=== PATIENT | female | born 1975 | race Hispanic/Latino ===

== ENCOUNTER 2021-11-25 16:29 | Emergency (ER) | payer OTHER, SELFPAY ==
[2021-11-25] VITALS (8 sets, daily range): BP systolic 122–189; BP diastolic 68–98; PULSE 78–92; RESP 17–23; TEMP 36.6; O2SAT 96–100; BMI 38.9
--- NOTE | 2021-11-25 19:03 | DI.CT.S_ITS ---
PROCEDURE: CT HEAD/BRAIN WO CON INDICATIONS: WARD, vision change TECHNIQUE: Noncontrast 4.5 mm thick angled axial sections acquired from the foramen magnum to the vertex, with coronal and sagittal reformats. For radiation dose reduction, the following was used: automated exposure control, adjustment of mA and/or kV according to patient size. COMPARISON: None. FINDINGS: Image quality: Excellent. CSF spaces: Basal cisterns are patent. No extra-axial fluid collections. Ventricles are normal in size and shape. Brain: No midline shift. No intracranial masses or hemorrhage. Sargent-white matter interface is normal. Skull and face: Calvarium and visualized facial bones are intact, without suspicious lesions. Sinuses: Visualized sinuses and mastoids are clear. IMPRESSION: CT head without acute intracranial abnormalities. No mass or mass effect visualized. Dictated by: Néstor Diallo M.D. on 11/25/2021 at 20:00 Approved by: Néstor Diallo M.D. on 11/25/2021 at 20:01
--- NOTE | 2021-11-25 19:19 | PC.NURSE ---
Went to lobby to bring pt to ED,unable to locate her. I called her and she said she was in her car sleeping.
--- NOTE | 2021-11-25 19:56 | ED_ITS ---
HPI - Headache General Chief Complaint: Headache Stated Complaint: lt sided visual change, face & jaw pain, numbness Time Seen by Provider: 11/25/21 19:03 Mode of arrival: Ambulatory History of Present Illness HPI Narrative: 46F smoker presents with various complaints that have been present since Wednesday. She states that she was at work on Wednesday and in her normal state of health when she had a panic attack, which is not necessarily abnormal for her. She states that she suddenly felt panicked and was breathing rapidly and felt her heart racing. That seemed to improve after some time but as the day went on she developed a left-sided headache with blurred vision in her left eye and abnormal sensation in her thumbs on each side. She denies any dizziness or lightheadedness. She has no chest pain or shortness of breath currently. She states the left side of her head, left ear and jaw have been persistently painful though slightly improved. She states that the pain is just anterior to her left ear in her jaw and she feels popping and cracking this location and sometimes her left ear sounds like there is a cellophane wrapper being crackled. She denies any obvious provocation or palliation. She denies any neck pain. She states that her symptoms by large have greatly improved but she still has some blurring of the vision in her left eye. She is able to see wiggling fingers but still cannot read and vision is decreased when compared to the left. Related Data Allergies Allergy/AdvReac Type Severity Reaction Status Date / Time No Known Drug Allergies Allergy Verified 11/25/21 20:52 Review of Systems Review of Systems Narrative: GENERAL: Denies chills, fatigue, malaise, fever, sweats. HEENT: See HPI RESPIRATORY: Denies dyspnea, cough, wheezing, hemoptysis, sputum. CARDIOVASCULAR: See HPI GASTROINTESTINAL: Denies nausea, vomiting, abdominal pain, diarrhea, constipation, melena. : Denies dysuria, frequency, incontinence, hematuria, urinary retention. MUSCULOSKELETAL: denies weakness, joint pain, or bony pain SKIN: Denies rash, skin lesions, or other NEUROLOGIC: See HPI PSYCHIATRIC: No concerning psychosocial issues. 12 point review of systems is negative except for those stated above Patient History Social History Smoking Status: Current every day smoker Smoking Status: Current every day smoker tobacco type: cigarettes alcohol intake frequency: a few times a week Substance Use Type: does not use Exam Narrative Exam Narrative: GENERAL: [46] year old patient appears stated age. Well-developed patient, in mild distress. GCS 15 HEAD: Atraumatic. Normocephalic. To swelling, redness. No pain on palpation of left catholic EYES: Pupils equal round and reactive. Extraocular motions intact. No scleral icterus. No injection or drainage. Tonopen OS 19/OD 21. ENT: Nose without bleeding, purulent drainage. Throat without erythema, tonsillar hypertrophy or exudate. Airway patent. NECK: Trachea midline. Non tender CARDIOVASCULAR: Regular rate and rhythm without murmurs, gallops, or rubs. RESPIRATORY: Clear to auscultation. Breath sounds equal bilaterally. No wheezes, rales, or rhonchi. GASTROINTESTINAL: Abdomen soft, non-tender, nondistended. EXTREMITIES: No edema or joint tenderness. BACK: Nontender without deformity or crepitance. No flank tenderness. NEURO: AOx3. SKIN: No rash or erythema of visible areas NIH Stroke Scale 1a. LOC: Patient is alert and keenly responsive (0) 1b. LOC Questions: Patient answers both LOC questions accurately (0) 1c. LOC Commands: Patient performs both tasks correctly (0) 2. Best Gaze: Normal (0) 3. Visual: No visual loss (0) 4. Facial palsy: Normal symmetrical movements (0) 5. Motor arm: No drift (0) 6. Motor leg: No drift (0) 7. Limb ataxia: Absent (0) 8. Sensory: Normal (0) 9. Best language: No aphasia; normal (0) 10. Dysarthria: Normal (0) 11. Extinction and inattention: No abnormality (0) NIHSS: 0 Initial Vital Signs Initial Vital Signs: Vital Signs Temperature 98 F 11/25/21 16:39 Pulse Rate 92 H 11/25/21 16:39 Respiratory Rate 20 11/25/21 16:39 Blood Pressure 189/98 H 11/25/21 16:39 Pulse Oximetry 98 11/25/21 16:39 Course Orders Ordered: ED Orders 11/25/21 19:03 CT head/brain wo con Stat 11/25/21 19:04 EKG-12 Lead Stat 11/25/21 20:15 CRP [C-Reactive Protein Quant] Stat Complete Blood Count AUTO DIFF Stat Comprehensive Metabolic Panel Stat ESR [Erythrocyte Sedimentation Rate] Stat Prothrombin Time INR Stat Troponin & CK Cardiac Panel Stat 11/25/21 20:29 CT angio head and neck Stat Discontinued Medications Fluorescein Sodium (Fluorescein 1 Mg Strip) 1 mg EYE-LEFT NOW ONE Stop: 11/25/21 20:10 Last Admin: 11/25/21 20:16 Dose: 1 mg Documented by: CARRINGTON Sodium Chloride (Normal Saline 0.9%) 1,000 mls @ 150 mls/hr IV CONT FRANCHESKA Last Admin: 11/25/21 20:16 Dose: 150 mls/hr Documented by: CARRINGTON Ketorolac Tromethamine (Ketorolac 30 Mg/Ml Vial) 15 mg IV NOW ONE Stop: 11/25/21 20:30 Last Admin: 11/25/21 20:52 Dose: 15 mg Documented by: GRANT Proparacaine HCl (Proparacaine 0.5% Ophth Maria Luisa) 1 drops EYE-LEFT NOW ONE Stop: 11/25/21 20:10 Last Admin: 11/25/21 20:16 Dose: 1 1000units Documented by: CARRINGTON Vital Signs Vital signs: Vital Signs - 8 hr 11/25/21 20:29 11/25/21 20:30 11/25/21 20:31 Pulse Rate 83 80 82 Respiratory Rate 19 19 17 Blood Pressure 131/75 Pulse Oximetry 98 98 98 11/25/21 20:55 11/25/21 21:00 11/25/21 21:30 Pulse Rate 81 78 78 Respiratory Rate 22 20 23 Blood Pressure 122/68 127/69 Pulse Oximetry 100 98 97 11/25/21 22:00 Pulse Rate 78 Respiratory Rate 18 Blood Pressure Pulse Oximetry 96 MDM - Headache Lab Data Result diagrams: 11/25/21 20:15 11/25/21 20:15 Labs: Lab Results 11/25/21 11/25/21 11/25/21 Range/Units 20:15 20:15 20:15 WBC 9.7 (4.5-11.0) X10^3/uL RBC 4.92 (4.0-5.2) X10^6/uL Hgb 14.3 (12.0-16.0) g/dL Hct 41.3 (36-46) % MCV 84.0 (80-100) fL MCH 29.0 (26-34) PG MCHC 34.5 (30-36) % RDW 13.0 (11.6-14.8) % Plt Count 159 (150-400) X10^3/uL Neut % (Auto) 59.4 (50-75) % Lymph % (Auto) 31.8 (25-40) % [place] % (Auto) 5.8 (3-14) % Eos % (Auto) 2.2 (2-4) % Baso % (Auto) 0.8 (0-2) % Neut # (Auto) 5800 (4781-1653) /uL Lymph # (Auto) 3100 (1430-3687) /uL [place] # (Auto) 600 (0-900) /uL Eos # (Auto) 200 (0-450) /uL Baso # (Auto) 100 (0-100) /uL ESR 18 (0-20) MM/HR PT (10.1-12.7) SECONDS INR (0.9-1.3) Sodium 136 L (137-145) mmol/L Potassium 3.7 (3.4-5.1) mmol/L Chloride 105 (98-107) mmol/L Carbon Dioxide 26 (22-32) mmol/L BUN 12 (7-17) mg/dL Creatinine 0.75 (0.52-1.04) mg/dL Estimated GFR > 60.0 (>60) mL/min BUN/Creatinine Ratio 16.0 (6-22) Glucose 91 (70-100) mg/dL Calcium 9.2 (8.4-10.2) mg/dL Total Bilirubin 0.8 (0.2-1.3) mg/dL AST 23 (14-36) IU/L ALT 21 (<35) IU/L Alkaline Phosphatase 65 (38-126) U/L Total Creatine Kinase 98 (30-135) U/L CK-MB (CK-2) TNP CK-MB (CK-2) Rel Index TNP Troponin I < 0.012 (0.01-0.034) ng/mL C-Reactive Protein < 0.5 (<1.0) mg/dL Total Protein 7.6 (6.3-8.2) g/dL Albumin 4.5 (3.5-5.0) g/dL Globulin 3.1 (1.7-4.1) g/dL Albumin/Globulin Ratio 1.5 (1.0-2.8) 11/25/21 Range/Units 20:15 WBC (4.5-11.0) X10^3/uL RBC (4.0-5.2) X10^6/uL Hgb (12.0-16.0) g/dL Hct (36-46) % MCV (80-100) fL MCH (26-34) PG MCHC (30-36) % RDW (11.6-14.8) % Plt Count (150-400) X10^3/uL Neut % (Auto) (50-75) % Lymph % (Auto) (25-40) % [place] % (Auto) (3-14) % Eos % (Auto) (2-4) % Baso % (Auto) (0-2) % Neut # (Auto) (8881-7275) /uL Lymph # (Auto) (4665-7306) /uL [place] # (Auto) (0-900) /uL Eos # (Auto) (0-450) /uL Baso # (Auto) (0-100) /uL ESR (0-20) MM/HR PT 11.9 (10.1-12.7) SECONDS INR 1.1 (0.9-1.3) Sodium (137-145) mmol/L Potassium (3.4-5.1) mmol/L Chloride (98-107) mmol/L Carbon Dioxide (22-32) mmol/L BUN (7-17) mg/dL Creatinine (0.52-1.04) mg/dL Estimated GFR (>60) mL/min BUN/Creatinine Ratio (6-22) Glucose (70-100) mg/dL Calcium (8.4-10.2) mg/dL Total Bilirubin (0.2-1.3) mg/dL AST (14-36) IU/L ALT (<35) IU/L Alkaline Phosphatase (38-126) U/L Total Creatine Kinase (30-135) U/L CK-MB (CK-2) CK-MB (CK-2) Rel Index Troponin I (0.01-0.034) ng/mL C-Reactive Protein (<1.0) mg/dL Total Protein (6.3-8.2) g/dL Albumin (3.5-5.0) g/dL Globulin (1.7-4.1) g/dL Albumin/Globulin Ratio (1.0-2.8) Imaging Data CT scan - head: Radiologist's Impression: Launch?[place] [address] CT Scan Report Signed Patient: Anthony Mott MR#: [id number] : 1975 Acct:[id number] Age/Sex: 46 / F Date of Service: 11/25/21 Loc: ED Accession Number: [id number] ?? Procedure: CT head/brain wo con Ordering Provider: Main Antunez D.O. PROCEDURE:? CT HEAD/BRAIN WO CON ? INDICATIONS:? WARD, vision change ? TECHNIQUE:? Noncontrast 4.5 mm thick angled axial sections acquired from the foramen magnum to the vertex, with coronal and sagittal reformats.? For radiation dose reduction, the following was used:? automated exposure control, adjustment of mA and/or kV according to patient size.? ? COMPARISON:? None. ? FINDINGS:? Image quality:? Excellent.? ? CSF spaces:? Basal cisterns are patent.? No extra-axial fluid collections.? Ventricles are normal in size and shape.? ? Brain:? No midline shift.? No intracranial masses or hemorrhage.? Sargent-white matter interface is normal.? ? Skull and face:? Calvarium and visualized facial bones are intact, without suspicious lesions.? ? Sinuses:? Visualized sinuses and mastoids are clear.? ? IMPRESSION:? CT head without acute intracranial abnormalities. No mass or mass effect visualized.? Dictated by: Néstor Diallo M.D. on 11/25/2021 at 20:00 ? ? Approved by: Néstor Diallo M.D. on 11/25/2021 at 20:01 ? CTA : Radiologist's Impression: Launch?[address] [address] [address] Scan Report Signed Patient: Anthony Mott MR#: [id number] : 1975 Acct:[id number] Age/Sex: 46 / F Date of Service: 11/25/21 Loc: ED Accession Number: [id number] ?? Procedure: CT angio head and neck Ordering Provider: Main Antunez D.O. PROCEDURE:? CT ANGIO HEAD AND NECK ? INDICATIONS:? left vision change, B/L extremity problems ? TECHNIQUE:? After the administration of intravenous contrast, 1 mm thick sections acquired from the aortic arch through the [place] of [place].? Post-contrast 4.5 mm thick sections then re-acquired from the foramen magnum to the vertex.? 3-dimensional bmnjeom-fxdykqshc-gdwqqabrjr (MIP) and/or volume rendering reformats were acquired of the central intracranial vasculature and neck separately. ? COMPARISON:? [facility], CT, CT HEAD/BRAIN WO CON, 11/25/2021, 19:08. ? FINDINGS:? Image quality:? Excellent.? ? BRAIN:? CSF spaces:? Ventricles are normal in size and shape.? Basal cisterns are patent.? No extra-axial fluid collections.? ? Brain:? No midline shift.? No acute intracranial hemorrhage or mass effect.? Sargent-white matter interface appears intact.? ? Skull and face:? Calvarium and facial bones appear intact, without suspicious lesions.? Orbits appear normal.? ? Sinuses:? Sin mild mucosal thickening is seen in the right sphenoid sinus and the right ethmoid air cells.? The remaining visualized paranasal sinuses and the mastoid air cells are clear. ? HEAD CT ANGIOGRAPHY:? Anterior circulation:? Intracranial internal carotid arteries are normal in size and flow.? The flow within the paired anterior cerebral arteries is normal and symmetric.? The flow within the middle cerebral arteries is normal and symmetric.? The anterior communicating artery is seen.? No aneurysms are seen.? ? Posterior circulation:? Visualized portions of the vertebral arteries demonstrate normal caliber, and join to form a normal appearing basilar artery.? Flow within the posterior cerebral arteries is normal and symmetric.? No aneurysms are seen.? ? NECK CT ANGIOGRAPHY:? Carotid system:? The great vessels demonstrate a conventional anatomy as they arise from the aortic arch.? The origins of the common carotid arteries appear patent.? The common carotid arteries demonstrate normal caliber and courses.? The bifurcation regions are both widely patent.? The internal carotid arteries demonstrate normal calibers and courses.? ? Posterior circulation:? The origins of the vertebral arteries both appear widely patent.? The more superior extracranial portions of both vertebral arteries also demonstrate normal courses and calibers.? They join to form a normal appearing basilar artery.? ? Soft tissues:? Visualized neck soft tissues demonstrate no suspicious abnormalities.? ? Bones:? No suspicious bony lesions.? Mild degenerative changes are seen in the included spine. ? ? IMPRESSION:? No hemodynamically significant arterial stenosis or occlusion in the head or neck.? No acute intracranial abnormality is seen. ? Any quantitative measurements of stenosis were performed using NASCET criteria.? ? ? Dictated by: Osbaldo Guevara M.D. on 11/25/2021 at 21:18 ? ? Approved by: Osbaldo Guevara M.D. on 11/25/2021 at 21:27 ? ECG Data Interpretation: EKG is normal sinus rhythm rate [81 ] and free of any signs of ischemia or ectopy. No ST segmental elevation or depression. No T wave inversions MDM Narrative Medical decision making narrative: Patient has very reassuring physical exam. Imaging shows no significant findings. Her symptoms are significantly improved now over its onset. Multiple diagnoses considered including stroke, carotid dissection or other neurosurgical emergency which are thought to be very unlikely given her history, physical and imaging results. Giant cell arteritis considered but thought unlikely given lack of pain on palpation over catholic, lack of elevated inflammatory markers. Acute angle closure glaucoma considered but thought unlikely given measurements as stated above. Patient certainly has evidence of temporomandibular joint disorder but no other significant diagnoses are obviously apparent. Patient given extensive return precautions and questions have been answered to her apparent satisfaction Discharge Plan Departure Patient Disposition: Home Clinical Impression: Temporal mandibular joint disorder Instructions: DI for Headache Activity Restrictions/Additional Instructions: *You have been diagnosed with [left-sided temporomandibular joint dysfunction. Your physical exam, CT scan, labs and EKG are very reassuring. There is no evidence of stroke, abnormality with arteries in your head and neck, giant cell arteritis, glaucoma or other severe diagnosis that requires a specific and immediate intervention *What to do: *Please continue to take your regular medications as directed. [ ] New medication prescriptions sent to your pharmacy: [ ] [ ] New medication written as a paper prescription [ x] No new medications given *Please follow up with your primary care provider in 2-3 days, call for an appointment. Let them know you were seen in the Emergency Department and that we ask that you be seen in follow up. We will electronically transmit a record of today's note if your PCP is in our system *If you do not have a primary care provider please contact the [facility] Resource line at [phone]. They will ask some questions about your medical history and help get you set up with a doctor in the community. *Return to Emergency Department if you should have any new, worsening or concerning symptoms, such as [fever greater than 101 F, shaking chills, wo rsening pain, persistent vomiting or other bothersome symptoms] Referrals: Hilaria Rubio MD [Primary Care Provider] -
[2021-11-25] MEDS: PROPARACAINE 0.5% OPHTH SOL 1 DROPS EYE-LEFT (20:16)
[2021-11-25] MEDS: FLUORESCEIN 1 MG STRIP EYE-LEFT (20:16)
[2021-11-25] MEDS: SODIUM CHLORIDE 0.9% 1,000 ML 150 ML IV (20:16)
--- NOTE | 2021-11-25 20:29 | DI.CT.S_ITS ---
PROCEDURE: CT ANGIO HEAD AND NECK INDICATIONS: left vision change, B/L extremity problems TECHNIQUE: After the administration of intravenous contrast, 1 mm thick sections acquired from the aortic arch through the [place] of [place]. Post-contrast 4.5 mm thick sections then re-acquired from the foramen magnum to the vertex. 3-dimensional tkaahpx-mvyjuriff-yllfgvjwpg (MIP) and/or volume rendering reformats were acquired of the central intracranial vasculature and neck separately. COMPARISON: [facility], CT, CT HEAD/BRAIN WO CON, 11/25/2021, 19:08. FINDINGS: Image quality: Excellent. BRAIN: CSF spaces: Ventricles are normal in size and shape. Basal cisterns are patent. No extra-axial fluid collections. Brain: No midline shift. No acute intracranial hemorrhage or mass effect. Sargent-white matter interface appears intact. Skull and face: Calvarium and facial bones appear intact, without suspicious lesions. Orbits appear normal. Sinuses: Sin mild mucosal thickening is seen in the right sphenoid sinus and the right ethmoid air cells. The remaining visualized paranasal sinuses and the mastoid air cells are clear. HEAD CT ANGIOGRAPHY: Anterior circulation: Intracranial internal carotid arteries are normal in size and flow. The flow within the paired anterior cerebral arteries is normal and symmetric. The flow within the middle cerebral arteries is normal and symmetric. The anterior communicating artery is seen. No aneurysms are seen. Posterior circulation: Visualized portions of the vertebral arteries demonstrate normal caliber, and join to form a normal appearing basilar artery. Flow within the posterior cerebral arteries is normal and symmetric. No aneurysms are seen. NECK CT ANGIOGRAPHY: Carotid system: The great vessels demonstrate a conventional anatomy as they arise from the aortic arch. The origins of the common carotid arteries appear patent. The common carotid arteries demonstrate normal caliber and courses. The bifurcation regions are both widely patent. The internal carotid arteries demonstrate normal calibers and courses. Posterior circulation: The origins of the vertebral arteries both appear widely patent. The more superior extracranial portions of both vertebral arteries also demonstrate normal courses and calibers. They join to form a normal appearing basilar artery. Soft tissues: Visualized neck soft tissues demonstrate no suspicious abnormalities. Bones: No suspicious bony lesions. Mild degenerative changes are seen in the included spine. IMPRESSION: No hemodynamically significant arterial stenosis or occlusion in the head or neck. No acute intracranial abnormality is seen. Any quantitative measurements of stenosis were performed using NASCET criteria. Dictated by: Osbaldo Guevara M.D. on 11/25/2021 at 21:18 Approved by: Osbaldo Guevara M.D. on 11/25/2021 at 21:27
[2021-11-25 20:30] LABS: Add Manual Diff / Slide Review NO; Basophils Absolute Auto 100 /uL (0-100); Basophils Percent Auto 0.8 % (0-2); Eosinophils Absolute Auto 200 /uL (0-450); Eosinophils Percent Auto 2.2 % (2-4); Hematocrit 41.3 % (36-46); Hemoglobin 14.3 g/dL (12.0-16.0); Lymphocytes Absolute Auto 3100 /uL (1100-4500); Lymphocytes Percent Auto 31.8 % (25-40); Mean Corpuscular HGB Conc 34.5 % (30-36); Monocytes Absolute Auto 600 /uL (0-900); Monocytes Percent Auto 5.8 % (3-14); Neutrophils Absolute Auto 5800 /uL (1500-7000); Neutrophils Percent Auto 59.4 % (50-75); Platelet Count 159 X10^3/uL (150-400); Red Blood Cell Count 4.92 X10^6/uL (4.0-5.2); White Blood Cell Count 9.7 X10^3/uL (4.5-11.0)
[2021-11-25 20:43] LABS: INR 1.1 (0.9-1.3); Prothrombin Time 11.9 SECONDS (10.1-12.7)
[2021-11-25 20:49] LABS: Alanine Aminotransferase 21 IU/L (<35); Albumin 4.5 g/dL (3.5-5.0); Albumin Globulin Ratio 1.5 (1.0-2.8); Alkaline Phosphatase 65 U/L (38-126); Aspartate Aminotransferase 23 IU/L (14-36); Bilirubin Total 0.8 mg/dL (0.2-1.3); Blood Urea Nitrogen 12 mg/dL (7-17); C-Reactive Protein Quant < 0.5 mg/dL (<1.0); Calcium 9.2 mg/dL (8.4-10.2); Carbon Dioxide 26 mmol/L (22-32); Chloride 105 mmol/L (98-107); Creatine Kinase 98 U/L (30-135); Estimated Glomerular Filt Rate > 60.0 mL/min (>60); Globulin 3.1 g/dL (1.7-4.1); Glucose 91 mg/dL (70-100); HEMOLYSIS < 15 (0-50); Potassium 3.7 mmol/L (3.4-5.1); Sodium 136 mmol/L (137-145); Total Protein 7.6 g/dL (6.3-8.2)
[2021-11-25] MEDS: KETOROLAC 30 MG/ML VIAL 15 MG IV (20:52)
[2021-11-25 20:57] LABS: Troponin I < 0.012 ng/mL (0.01-0.034)
[2021-11-25 21:06] LABS: Erythrocyte Sedimentation Rate 18 MM/HR (0-20)
== END 2021-11-25 22:10 | disposition home or self-care (01) ==
PROVIDERS: Emergency Provider Emergency Medicine; PCP Student in an Organized Health Care Education/Training Program; Referring Provider Student in an Organized Health Care Education/Training Program
DX: M26.602 Left temporomandibular joint disorder, unspecified (principal); R20.2 Paresthesia of skin; H53.8 Other visual disturbances; R03.0 Elevated blood-pressure reading, without diagnosis of hypertension
CPT/HCPCS: 36415; 70450; 70496; 70498; 80053; 82550; 84484; 85025; 85610; 85651; 86140; 93005; 93010; 96374; 99284; J1885; Q9967

== ENCOUNTER → 2022-12-23 15:12 | Outpatient (CLI) | payer OTHER, SELFPAY ==
[2022-12-23 15:53] LABS: Hematocrit 45.4 % (36-46); Hemoglobin 15.9 g/dL (12.0-16.0); Mean Corpuscular Hemoglobin 29.3 PG (26-34); Mean Corpuscular Volume 83.8 fL (80-100); Platelet Count 134 X10^3/uL (150-400); Red Blood Cell Count 5.42 X10^6/uL (4.0-5.2); Red Cell Distribution Width 12.9 % (11.6-14.8); White Blood Cell Count 6.9 X10^3/uL (4.5-11.0)
[2022-12-23 16:50] LABS: Alanine Aminotransferase 24 IU/L (<35); Albumin 4.6 g/dL (3.5-5.0); Albumin Globulin Ratio 1.3 (1.0-2.8); Alkaline Phosphatase 64 U/L (38-126); Aspartate Aminotransferase 24 IU/L (14-36); BUN Creatinine Ratio 15.8 (6-22); Bilirubin Total 0.7 mg/dL (0.2-1.3); Blood Urea Nitrogen 12 mg/dL (7-17); Calcium 9.4 mg/dL (8.4-10.2); Carbon Dioxide 27 mmol/L (22-32); Chloride 103 mmol/L (98-107); Cholesterol 266 mg/dL (140-199); Estimated Glomerular Filt Rate > 60 mL/min (>60); Globulin 3.6 g/dL (1.7-4.1); Glucose 94 mg/dL (70-100); HDL Cholesterol 41 mg/dL (40-60); HEMOLYSIS < 15 (0-50); LDL Cholesterol Calculated 161 mg/dL (<100); Potassium 4.2 mmol/L (3.4-5.1); Sodium 138 mmol/L (137-145); Total Protein 8.2 g/dL (6.3-8.2); Triglycerides 318 mg/dL (35-150)
[2022-12-23 17:19] LABS: TSH w/ Reflex to FT4 3.32 uIU/mL (0.47-4.68)
[2022-12-25 03:09] LABS: Labcorp Hemoglobin (Hb) A1c 5.4 % (4.8-5.6)
[2022-12-28 16:41] LABS: Lamotrigine Lamictal 2.3 ug/mL (2.0-20.0)
== END ==
PROVIDERS: PCP Internal Medicine; Referring Provider Internal Medicine; Visit Provider Internal Medicine
DX: Z00.00 Encounter for general adult medical examination without abnormal findings (principal); E78.2 Mixed hyperlipidemia; F31.81 Bipolar II disorder
CPT/HCPCS: 36415; 80053; 80061; 80175; 83036; 84443; 85027

== ENCOUNTER → 2023-02-26 07:39 | Outpatient (CLI) | payer OTHER, SELFPAY ==
--- NOTE | 2023-02-26 | DI.MG.S_ITS ---
BILATERAL DIGITAL SCREENING MAMMOGRAM 3D/2D WITH CAD: 02/26/2023 CLINICAL: Routine screening. Comparison is made to exams dated: 05/20/2021 mammogram - [facility], 01/11/2018 mammogram, and 01/16/2016 mammogram - [facility]. Both breasts are heterogeneously dense, which may obscure small masses (category c / 51-75% glandular tissue). Current study was also evaluated with a Computer Aided Detection (CAD) system. No significant masses, calcifications, or other findings are seen in either breast. There has been no significant interval change. IMPRESSION: NEGATIVE There is no mammographic evidence of malignancy. A 1 year screening mammogram is recommended. Based on the Tyrer Cuzick model (a risk assessment model) the patient's lifetime risk is 10.4% and her 10 year risk is 2.1%. According to the ACR, ACS, and NCCN guidelines, an annual breast MRI exam along with mammogram is recommended if the patient's lifetime risk is 20% or greater. This exam was interpreted at Station ID: [id number]. NOTE: For mammograms, a report in lay terms will be sent to the patient. Approximately 15% of breast malignancies will not be visualized mammographically. In the management of a palpable breast mass, a negative mammogram must not discourage biopsy of a clinically suspicious lesion. Electronically Signed By: Dennys davalos/sheryl:02/26/2023 10:34:53 letter sent: Normal Exam ACR BI-RADS Category 1: Negative 3341F
== END ==
PROVIDERS: PCP Internal Medicine; Referring Provider Internal Medicine; Visit Provider Internal Medicine
DX: Z12.31 Encounter for screening mammogram for malignant neoplasm of breast (principal)
CPT/HCPCS: 77063; 77067

== ENCOUNTER 2023-03-26 11:18 | Day surgery (SDC) | payer OTHER, SELFPAY ==
--- NOTE | 2023-03-26 | PATH_ITS ---
[facility] Accession Number: [id number] No. of containers..01 Tissue . 01 Material submitted: . colon - TRANSVERSE COLON BIOPSY . 01 Diagnosis: Transverse Colon, Biopsy: Tubular adenoma. MRV 04/01/2023 1620 Local . 01 Electronically signed: . Eunice Walden MD, Pathologist NPI- [id number] . 01 Gross description: . TRANSVERSE COLON BIOPSY: Received in formalin are 3 fragment(s) of frey, soft tissue measuring 0.1 x 0.1 x 0.1 cm to 0.3 x 0.2 x 0.2 cm submitted entirely in 1 cassette(s) /LEXA 03/30/20232032 Local . 01 Pathologist provided ICD-10: D12.3 . 01 CPT . 651768 Specimen Comment: A courtesy copy of this report has been sent to [facility] Pathology Performed at: 01 [facility] Cyt[facility] [address] [place] [address], [place], [place] [id number] MD Salvador Gutierrez MD Phone: [phone]
[2023-03-26 11:41] VITALS: BP 127/86; PULSE 77; RESP 19; TEMP 36.5; O2SAT 98; BMI 38.6
[2023-03-26] MEDS: LACTATED RINGERS 1,000 ML 84 ML IV (12:00)
--- NOTE | 2023-03-26 13:26 | P.HP_ITS ---
History of Present Illness History of Present Illness Date Patient Seen: 03/26/23 Date of Onset of Symptoms: 03/26/23 Chief complaint: Colonoscopy Narrative: Ms. Mott presents today for a screening colonoscopy. She has no family history of colon cancer. This is her 1st colonoscopy. She has no concerning symptoms but she does say that on occasion she has constipation and diarrhea along with abdominal cramps on occasion. This has been going on for years and she has not had much workup for it. She has changed her diet but mainly that was because her legs are becoming swollen and she is switched to a low-sodium diet additionally she is started a low-carbohydrate diet because her knees are hurting and she knows she needs to lose weight. She has not noticed any change in her occasional diarrhea constipation and cramps with those dietary changes. She does take Benefiber once at nighttime and in fact this does seem to help. She is no other questions about a colonoscopy today and would like to proceed. [facility] Medical History ADD (attention deficit disorder) Adjustment disorder with other symptoms Allergic rhinitis Asthma Bipolar 2 disorder Bipolar disorder, in partial remission, most recent episode mixed Carpal tunnel syndrome Chronic cough Generalized anxiety disorder Headache Mixed hyperlipidemia Obesity (BMI 35.0-39.9 without comorbidity) PTSD (post-traumatic stress disorder) Restless legs syndrome Synovial cyst of popliteal space [Chowdary], right knee TMJ syndrome Tobacco use disorder Surgical History Anesthesia History of carpal tunnel surgery History of knee surgery Family History Father Cancer Mother Hypertension Hyperlipidemia Mental health problem Social History details: ([place]), son age 20; caregiver household members: spouse Smoking Status: Current every day smoker alcohol intake: current Meds Home Medications and Allergies Home Medications Medication Instructions Recorded Confirmed Type methylphenidate HCl 18 mg 18 mg PO DAILY #90 tabs 10/30/22 03/26/23 Rx tablet,extended release 24 hr aspirin 81 mg tablet,delayed 81 mg PO DAILY Blood circulation 12/23/22 03/26/23 History release atorvastatin 40 mg tablet 40 mg PO DAILY #90 tabs 12/23/22 03/26/23 Rx cholecalciferol (vitamin D3) 125 125 mcg PO DAILY 12/23/22 03/26/23 History mcg (5,000 unit) capsule lamotrigine 100 mg tablet 100 mg PO BID #90 tabs 12/23/22 03/26/23 Rx loratadine 10 mg tablet 10 mg PO DAILY #90 tabs 12/23/22 03/26/23 Rx meloxicam 15 mg tablet 15 mg PO DAILY #90 tabs 12/23/22 03/26/23 Rx omega-3 fatty acids 1,000 mg 1,000 mg PO DAILY 12/23/22 03/26/23 History capsule phytonadione (vitamin K1) 100 mcg 100 mcg PO DAILY 12/23/22 03/26/23 History tablet prazosin 1 mg capsule 1 mg PO BEDTIME #90 caps 12/23/22 03/26/23 Rx guaifenesin 600 mg tablet, 600 mg PO Q12H PRN Congestion 03/12/23 03/26/23 History extended release 12 hr (Mucinex) fluticasone propionate 50 1 spray intranasal DAILY Allergies 03/15/23 03/26/23 Rx mcg/actuation nasal #16 grams spray,suspension hydrochlorothiazide 25 mg tablet 25 mg PO DAILY #90 tabs 03/22/23 03/26/23 Rx Allergies Allergy/AdvReac Type Severity Reaction Status Date / Time Steroid AdvReac Severe Agitated Uncoded 03/22/23 13:36 Raquel AdvReac Intermediate Swelling Uncoded 03/26/23 11:52 of the Eye Exam Vital Signs (past 8 hours): - 03/26/23 11:41 Temperature 97.7 F Pulse Rate 77 Respiratory Rate 19 Blood Pressure 127/86 Pulse Oximetry 98 Oxygen Delivery Method Room Air Oxygen Delivery Method Room Air Const General: cooperative, healthy appearing and comfortable Nutritional Appearance: obese (38 bmi) Orientation: alert, awake and oriented x3 HENMT Head: normal to inspection Eyes General: appearance normal, both eyes and all related structures Neck Neck: normal visual inspection Resp Effort & Inspection: normal respiratory effort and able to speak in complete sentences GI Palpation: soft and No tender Extrem General: normal to inspection Other: I do not appreciate a large amount of bilateral lower extremity edema. Assessment & Plan Assessment and plan (1) Colon cancer screening: Status: Acute Assessment & Plan narrative: Presents today for screening colonoscopy I discussed the risks benefits and alternatives including but not limited to perforation of the colon and an incomplete exam she fully understands these risks and would like to proceed.
--- NOTE | 2023-03-26 14:31 | PM.OP.COLON ---
Operative Date/Time/Diagnoses Date of procedure: 03/26/23 Time of procedure: 14:31 Pre-op diagnosis: Screening for colon cancer, no family history Post-op diagnosis: same Procedure & Clinicians Study performed: Colonoscopy and biopsy Same procedure as scheduled: Yes Indications: Screening for colon cancer Surgeon: Maria D Weston Procedure Notes Procedure in detail: Patient was taken to the endoscopy suite and placed in a left lateral decubitus position. A time-out was performed. With the help of anesthesiologist conscious sedation was induced and monitored throughout the case. A digital rectal exam was performed and there were no masses or strictures. The colonoscope was introduced into the anal canal and advanced through to the cecum. A photograph of the appendiceal orifice was obtained. The bowel prep was good [place] bowel prep score of 2. The scope was then withdrawn for a total of 11 minutes and 1 polyp in the transverse colon was seen and removed with 2 bites of the biopsy forceps. The 1st bite partially missed the polyp and the polyp was small size probably approximately 5 mm. A few scattered sigmoid diverticula were noted. The scope was withdrawn through the anal canal and a photograph of the internal hemorrhoidal piles was obtained. Findings: divertiulosis and polyp(s) Specimen(s): other (Transverse colon polyp) Post-procedure Plan for aftercare: Follow-up recommendations are pending the biopsy results but likely to be between 7-10 years. Fiber supplementation recommended.
[2023-03-26 14:34] VITALS: BP 95/66; PULSE 76; RESP 20; TEMP 36.1; O2SAT 98
[2023-03-26 14:39] VITALS: BP 95/51; PULSE 84; RESP 18; O2SAT 99
[2023-03-26 14:45] VITALS: BP 102/64; PULSE 79; RESP 19; O2SAT 98
== END 2023-03-26 15:14 | disposition home or self-care (01) ==
PROVIDERS: PCP Internal Medicine; Referring Provider Surgery; Visit Provider Surgery
PROC: 0DJD8ZZ Inspection of Lower Intestinal Tract, Via Natural or Artificial Opening Endoscopic (ICD-10-PCS; CPT 45378; principal; 2023-03-26 12:30)
DX: D12.3 Benign neoplasm of transverse colon (principal); K57.90 Diverticulosis of intestine, part unspecified, without perforation or abscess without bleeding; J45.909 Unspecified asthma, uncomplicated; F31.81 Bipolar II disorder; E66.9 Obesity, unspecified; Z68.35 Body mass index [BMI] 35.0-35.9, adult; Z12.11 Encounter for screening for malignant neoplasm of colon
CPT/HCPCS: 45380; J2704

== ENCOUNTER → 2023-04-05 08:15 | Outpatient (CLI) | payer OTHER, SELFPAY ==
[2023-04-05 09:15] LABS: BUN Creatinine Ratio 18.1 (6-22); Blood Urea Nitrogen 13 mg/dL (7-17); Calcium 9.1 mg/dL (8.4-10.2); Carbon Dioxide 32 mmol/L (22-32); Chloride 101 mmol/L (98-107); Estimated Glomerular Filt Rate > 60 mL/min (>60); Glucose 112 mg/dL (70-100); HEMOLYSIS < 15 (0-50); Potassium 4.5 mmol/L (3.4-5.1); Sodium 137 mmol/L (137-145)
[2023-04-05 09:45] LABS: Cortisol Random 9.76 ug/dL
== END ==
PROVIDERS: PCP Internal Medicine; Referring Provider Internal Medicine; Visit Provider Internal Medicine
DX: E24.9 Cushing's syndrome, unspecified (principal); I87.2 Venous insufficiency (chronic) (peripheral)
CPT/HCPCS: 36415; 80048; 82533

== ENCOUNTER → 2023-06-14 16:44 | Outpatient (CLI) | payer OTHER, SELFPAY ==
[2023-06-14 18:42] LABS: BUN Creatinine Ratio 21.6 (6-22); Blood Urea Nitrogen 16 mg/dL (7-17); Calcium 10.1 mg/dL (8.4-10.2); Carbon Dioxide 28 mmol/L (22-32); Chloride 100 mmol/L (98-107); Estimated Glomerular Filt Rate > 60 mL/min (>60); Glucose 97 mg/dL (70-100); HEMOLYSIS < 15 (0-50); Potassium 3.7 mmol/L (3.4-5.1); Sodium 137 mmol/L (137-145)
== END ==
PROVIDERS: PCP Internal Medicine; Referring Provider Internal Medicine; Visit Provider Internal Medicine
DX: I87.2 Venous insufficiency (chronic) (peripheral) (principal)
CPT/HCPCS: 36415; 80048

== ENCOUNTER → 2023-08-16 15:02 | Outpatient (CLI) | payer OTHER, SELFPAY ==
--- NOTE | 2023-08-16 15:03 | DI.US.S_ITS ---
PROCEDURE: US PELVIC COMPLETE INDICATIONS: IRREGULAR BLEEDING TECHNIQUE: Real-time scanning was performed of the pelvic organs, with image documentation. Additional endovaginal scanning was necessary due to incomplete visualization of the adnexal and endometrial structures by transabdominal scanning. COMPARISON: None. FINDINGS: Uterus: Uterus is anteverted and bulbous in appearance at 7.5 x 3.9 x 3.4 cm. The myometrium is heterogeneous with myometrial cysts the largest measuring 0.72 cm in maximal dimension. Given the imaging findings this may represent adenomyosis and if further evaluation clinically indicated of female pelvic MRI may be of further clinical value.. The endometrium heterogeneous with irregular borders measures 0.93 mm combined thickness. Ovaries: The right ovary measures 2.8 x 1.8 x 1.8 cm, with a calculated ovarian volume of 4.7 cc. The left ovary measures 2.5 x 2.0 x 1.9 cm, with a calculated ovarian volume of 4.9 cc. The ovaries have a normal sonographic appearance. Less than 12 follicles can be seen in each ovary. No adnexal masses are seen. Other: No pathologic free abdominal or pelvic fluid. IMPRESSION: 1. Complex heterogeneous endometrium with the regular borders and myometrial cysts the largest measuring 0.72 cm. Given the imaging findings this may represent uterine adenomyosis and if further evaluation is clinically indicated a female pelvic MRI may be of further clinical value. 2. Nabothian cysts present in the region of the cervix. We strive to produce accurate, complete, and clear reports of imaging services. To assist us in improving patient care, this report was composed using standard report templates and voice recognition software. Therefore, it may contain abnormal punctuation, insertions and/or omissions. Occasional wrong-word or sound-alike substitutions may occur. Though we review the report and make efforts to correct it, we do recommend that the report be read carefully in proper context to recognize any text inaccuracies. Dictated by: Brody Rao M.D. on 08/16/2023 at 17:05 Approved by: Brody Rao M.D. on 08/16/2023 at 17:14
== END ==
PROVIDERS: PCP Internal Medicine; Referring Provider Obstetrics & Gynecology; Visit Provider Obstetrics & Gynecology
DX: N92.6 Irregular menstruation, unspecified (principal); N85.8 Other specified noninflammatory disorders of uterus; N88.8 Other specified noninflammatory disorders of cervix uteri
CPT/HCPCS: 76830; 76856

== ENCOUNTER → 2023-09-01 17:19 | Outpatient (CLI) | payer OTHER, SELFPAY ==
--- NOTE | 2023-09-01 17:21 | DI.RAD.S_ITS ---
PROCEDURE: XR CHEST 2V INDICATIONS: cough TECHNIQUE: 2 views of the chest were acquired. COMPARISON: None. FINDINGS: Surgical changes and devices: None. Lungs and pleura: Lungs are clear. No pleural effusions or pneumothorax. Mediastinum: Mediastinal contours are normal. Heart size is normal. Bones and chest wall: No suspicious bony abnormalities. Soft tissues appear unremarkable. IMPRESSION: No acute cardiopulmonary abnormality. Dictated by: Dennys Jalloh M.D. on 09/02/2023 at 11:19 Approved by: Dennys Jalloh M.D. on 09/02/2023 at 11:21
== END ==
PROVIDERS: PCP Internal Medicine; Referring Provider Internal Medicine; Visit Provider Internal Medicine
DX: J45.31 Mild persistent asthma with (acute) exacerbation (principal); F17.200 Nicotine dependence, unspecified, uncomplicated
CPT/HCPCS: 71046

== ENCOUNTER → 2023-10-19 13:51 | Outpatient (CLI) | payer OTHER, SELFPAY ==
[2023-10-19 15:04] LABS: Add Manual Diff / Slide Review NO; Basophils Absolute Auto 100 /uL (0-100); Eosinophils Absolute Auto 200 /uL (0-450); Eosinophils Percent Auto 2.8 % (2-4); Hematocrit 43.6 % (36-46); Hemoglobin 15.1 g/dL (12.0-16.0); Lymphocytes Absolute Auto 1900 /uL (1100-4500); Lymphocytes Percent Auto 28.9 % (25-40); Mean Corpuscular HGB Conc 34.5 % (30-36); Mean Corpuscular Hemoglobin 28.7 PG (26-34); Mean Corpuscular Volume 83.2 fL (80-100); Monocytes Absolute Auto 400 /uL (0-900); Neutrophils Absolute Auto 4000 /uL (1500-7000); Neutrophils Percent Auto 61.3 % (50-75); Platelet Count 164 X10^3/uL (150-400); Red Blood Cell Count 5.25 X10^6/uL (4.0-5.2); Red Cell Distribution Width 13.3 % (11.6-14.8); White Blood Cell Count 6.5 X10^3/uL (4.5-11.0)
[2023-10-24 13:03] LABS: Alder IgE <0.10 kU/L (Class 0); Alternaria alternata IgE <0.10 kU/L (Class 0); Aspergillus fumigatus IgE <0.10 kU/L (Class 0); Box Elder IgE <0.10 kU/L (Class 0); Cat Dander IgE <0.10 kU/L (Class 0); Cladosporium herbarum IgE <0.10 kU/L (Class 0); Cockroach IgE <0.10 kU/L (Class 0); Cottonwood IgE <0.10 kU/L (Class 0); D farinae IgE <0.10 kU/L (Class 0); D pteronyssinus IgE <0.10 kU/L (Class 0); Dog Dander IgE <0.10 kU/L (Class 0); Elm Tree IgE <0.10 kU/L (Class 0); IgE Mugwort <0.10 kU/L (Class 0); IgE Thistle,Russian <0.10 kU/L (Class 0); Immunoglobulin E 48 IU/mL (6-495); Mountain Cedar IgE <0.10 kU/L (Class 0); Mouse Urine Proteins IgE <0.10 kU/L (Class 0); Oak Tree IgE <0.10 kU/L (Class 0); Penicillium chrysogen IgE <0.10 kU/L (Class 0); Pigweed, Common IgE <0.10 kU/L (Class 0); Sheep Sorrel IgE <0.10 kU/L (Class 0); Silver Birch IgE <0.10 kU/L (Class 0); Timothy Grass IgE <0.10 kU/L (Class 0)
== END ==
PROVIDERS: Obstetrics & Gynecology; PCP Internal Medicine; Referring Provider Internal Medicine Critical Care Medicine; Visit Provider Internal Medicine Critical Care Medicine
DX: N95.1 Menopausal and female climacteric states (principal); J45.20 Mild intermittent asthma, uncomplicated; R04.2 Hemoptysis; F17.210 Nicotine dependence, cigarettes, uncomplicated
CPT/HCPCS: 36415; 82785; 83001; 85025; 86003; 95012; 99214; A4617

== ENCOUNTER → 2023-11-09 11:20 | Outpatient (CLI) | payer OTHER, SELFPAY | PROVIDERS: PCP Internal Medicine; Referring Provider Internal Medicine Critical Care Medicine; Visit Provider Internal Medicine Critical Care Medicine | DX: J45.909 Unspecified asthma, uncomplicated (principal); F17.210 Nicotine dependence, cigarettes, uncomplicated; J98.8 Other specified respiratory disorders | CPT/HCPCS: 94060; 94726; 94729 ==

== ENCOUNTER → 2024-01-19 15:41 | Outpatient (CLI) | payer OTHER, SELFPAY ==
[2024-01-19 16:47] LABS: Appearance Urine UA SL CLOUDY; Bilirubin Urine UA NEGATIVE (NEGATIVE); Color Urine UA YELLOW; Glucose Urine UA NEGATIVE (Negative); Ketones Urine UA NEGATIVE (NEGATIVE); Leukocyte Esterase Urine UA 2+ (NEGATIVE); Nitrite Urine UA NEGATIVE (Negative); Occult Blood Urine UA 3+ (Negative); Protein Urine UA NEGATIVE (Negative); Specific Gravity Urine UA <=1.005 (1.000-1.035); Urobilinogen Urine UA 0.2 E.U./dL (0.2)
[2024-01-19 16:54] LABS: Bacteria Urine Moderate (10-30); Culture Indicated Urine Specimen Cultured; RBC Urine 0-1/HPF (0-5/HPF); Squamous Epithelial Cell Urine >30 /HPF (0-5/HPF); Urine Volume 10mL (spun); WBC Urine 1-5/HPF (0-5/HPF)
== END ==
PROVIDERS: PCP Internal Medicine; Referring Provider Internal Medicine; Visit Provider Internal Medicine
DX: R30.0 Dysuria (principal)
CPT/HCPCS: 81001; 87086

== ENCOUNTER → 2024-06-27 10:40 | Outpatient (CLI) | payer OTHER, SELFPAY ==
[2024-06-27 12:04] LABS: Hematocrit 42.9 % (36-46); Hemoglobin 15.1 g/dL (12.0-16.0); Mean Corpuscular HGB Conc 35.2 % (30-36); Mean Corpuscular Hemoglobin 29.2 PG (26-34); Platelet Count 170 X10^3/uL (150-400); Red Blood Cell Count 5.18 X10^6/uL (4.0-5.2); Red Cell Distribution Width 13.5 % (11.6-14.8); White Blood Cell Count 6.3 X10^3/uL (4.5-11.0)
[2024-06-27 12:47] LABS: Alanine Aminotransferase 25 IU/L (<35); Albumin 4.4 g/dL (3.5-5.0); Albumin Globulin Ratio 1.6 (1.0-2.8); Alkaline Phosphatase 82 U/L (38-126); Aspartate Aminotransferase 24 IU/L (14-36); BUN Creatinine Ratio 16.3 (6-22); Bilirubin Total 0.5 mg/dL (0.2-1.3); Blood Urea Nitrogen 14 mg/dL (7-17); Calcium 9.7 mg/dL (8.4-10.2); Carbon Dioxide 24 mmol/L (22-32); Chloride 106 mmol/L (98-107); Cholesterol 200 mg/dL (140-199); Estimated Glomerular Filt Rate > 60 mL/min (>60); Globulin 2.7 g/dL (1.7-4.1); Glucose 104 mg/dL (70-100); HDL Cholesterol 39 mg/dL (40-60); HEMOLYSIS < 15 (0-50); Potassium 3.8 mmol/L (3.4-5.1); Sodium 140 mmol/L (137-145); Total Protein 7.1 g/dL (6.3-8.2); Triglycerides 390 mg/dL (35-150)
[2024-06-27 12:48] LABS: LDL Cholesterol Calculated 83 mg/dL (<100)
[2024-06-27 13:00] LABS: TSH w/ Reflex to FT4 2.02 uIU/mL (0.47-4.68)
== END ==
PROVIDERS: PCP Internal Medicine; Referring Provider Internal Medicine; Visit Provider Internal Medicine
DX: F31.81 Bipolar II disorder (principal); E78.2 Mixed hyperlipidemia
CPT/HCPCS: 36415; 80053; 80061; 80175; 84443; 85027

== ENCOUNTER → 2024-07-12 | Outpatient (CLI) | payer OTHER, SELFPAY ==
--- NOTE | 2024-07-12 13:14 | DI.MG.S_ITS ---
BILATERAL DIGITAL SCREENING MAMMOGRAM 3D/2D WITH CAD: 07/12/2024 CLINICAL: Routine screening. Comparison is made to exams dated: 02/26/2023 mammogram - [facility], 05/20/2021 mammogram - [facility], and 01/11/2018 mammogram - [facility]. The breasts are heterogeneously dense, which may obscure small masses (category c / 51-75% glandular tissue). Current study was also evaluated with a Computer Aided Detection (CAD) system. No significant masses, calcifications, or other findings are seen in either breast. There has been no significant interval change. IMPRESSION: NEGATIVE There is no mammographic evidence of malignancy. A 1 year screening mammogram is recommended. Based on the Tyrer Cuzick model (a risk assessment model) the patient's lifetime risk is 9.3% and her 10 year risk is 2.0%. According to the ACR, ACS, and NCCN guidelines, an annual breast MRI exam along with mammogram is recommended if the patient's lifetime risk is 20% or greater. This exam was interpreted at Station ID: [id number]. NOTE: For mammograms, a report in lay terms will be sent to the patient. Approximately 15% of breast malignancies will not be visualized mammographically. In the management of a palpable breast mass, a negative mammogram must not discourage biopsy of a clinically suspicious lesion. Electronically Signed By: Phoebe Ruiz M.D., Ph.D. julita/sheryl:07/26/2024 15:05:59 letter sent: Normal Exam ACR BI-RADS Category 1: Negative
--- NOTE | 2024-07-12 13:14 | DI.US.S_ITS ---
PROCEDURE: US THYROID INDICATIONS: NECK FIRMNESS ?THYROID NODULE TECHNIQUE: Real-time scanning was performed of the thyroid gland, with image documentation. COMPARISON: None. FINDINGS: Thyroid: Right lobe measures 4.8 x 1.6 x 1.3 cm. Left lobe measures 4.6 x 1.6 x 1.2 cm. Isthmus is 0.5 cm thick. Echotexture is homogeneous. No suspicious thyroid nodules. IMPRESSION: Normal size and echotexture of the thyroid. No nodules. Dictated by: Eliu Cunningham M.D. on 07/12/2024 at 16:35 Approved by: Eliu Cunningham M.D. on 07/12/2024 at 16:37
== END ==
LOC: MAMMO 13:13
PROVIDERS: PCP Internal Medicine; Referring Provider Internal Medicine; Visit Provider Internal Medicine
DX: E04.1 Nontoxic single thyroid nodule (principal); Z12.31 Encounter for screening mammogram for malignant neoplasm of breast; R92.333 Mammographic heterogeneous density, bilateral breasts
CPT/HCPCS: 76536; 77063; 77067

== ENCOUNTER → 2024-10-17 13:32 | Outpatient (CLI) | payer OTHER, SELFPAY ==
--- NOTE | 2024-10-17 | DI.MRI.S_ITS ---
PROCEDURE: MR KNEE RT WO CON INDICATIONS: Synovial cyst of popliteal space [Chowdary], right knee TECHNIQUE: Noncontrast sagittal PD fast spin echo and T2 fast spin echo with fat saturation, sagittal 3-D FLASH with fat saturation; coronal T1 spin echo and PD fast spin echo with fat saturation, and axial PD fast spin echo with fat saturation through the knee. COMPARISON: [facility] [employer], CR, XR KNEE 4+ VIEWS RIGHT, 07/26/2024, 13:53. FINDINGS: Image quality: Excellent. Menisci: Truncated appearance of body and posterior horn of medial meniscus suggestive of prior partial meniscectomy . Signal abnormality within posterior horn remanent of medial meniscus extending to both superior and inferior articulating surfaces suggestive of recurrent tear. There is also complex oblique tear involving anterior horn of lateral meniscus extending to superior articulating surface. Cruciate ligaments: No normal ACL is visualized concerning for chronic ACL rupture. The PCL is intact. Medial structures: The medial collateral ligament appears thickened with surrounding soft tissue edema. Visualized portions of the pes anserinus tendons appear normal. No abnormal bursal fluid. Lateral structures: The lateral collateral ligament is thickened at its femoral insertion with intrasubstance T2 hyperintense signal. The long and short heads of the biceps femoris tendon appear intact. The popliteus tendon appears normal. Iliotibial band appears normal. Anterior structures: The quadriceps and patellar tendons appear intact. Patellar alignment is normal. Bones and cartilage: No bone marrow contusions or fractures. Moderate to severe osteoarthritis and chondromalacia involving medial femoral tibial compartment is seen. Low-grade chondromalacia is also seen involving lateral femoral tibial compartment and patellofemoral compartment with focal area of high-grade chondromalacia involving apex of patella cartilage. Joint space: There is small knee joint fluid. Large lobulated and septated popliteal cyst is seen measures up to 3.6 x 5.9 x 8.6 cm in size. Normal appearing synovial plicae are incidentally noted. IMPRESSION: 1. Truncated appearance of body and posterior horn of medial meniscus with peripheral displacement of medial meniscal remanent consistent with prior partial meniscectomy versus chronic complex tear. Suggestion of complex tear involving body and posterior horn remanent of medial meniscus extending to both superior and inferior articulating surfaces. 2. Complex oblique tear involving anterior horn of lateral meniscus extending to superior articulating surface. 3. Nonvisualization of normal intact ACL concerning for chronic ACL rupture. The PCL is intact. 4. Sprain/low-grade partial-thickness tear involving MCL. Low-grade intrasubstance partial-thickness tear involving proximal LCL at its femoral insertion. 5. Moderate to severe medial femoral tibial compartment osteoarthritis and high-grade chondromalacia. Low-grade chondromalacia involving lateral femoral tibial compartment and patellar cartilage with focal area of moderate to high-grade chondromalacia involving apex of patella cartilage. No fracture or dislocation. 6. Small joint effusion and a large lobulated and septated popliteal cyst as above. No gross loose bodies. Dictated by: Pedro Hamlin M.D. on 10/18/2024 at 12:57 Approved by: Pedro Hamlin M.D. on 10/18/2024 at 13:09
== END ==
LOC: MRI 13:34
PROVIDERS: PCP Internal Medicine; Referring Provider Orthopaedic Surgery; Visit Provider Orthopaedic Surgery
DX: M71.21 Synovial cyst of popliteal space [Baker], right knee (principal); S83.271A Complex tear of lateral meniscus, current injury, right knee, initial encounter; S83.411A Sprain of medial collateral ligament of right knee, initial encounter; S83.421A Sprain of lateral collateral ligament of right knee, initial encounter; M17.11 Unilateral primary osteoarthritis, right knee; M94.261 Chondromalacia, right knee; M25.461 Effusion, right knee
CPT/HCPCS: 73721

== ENCOUNTER → 2024-11-01 10:01 | Outpatient (CLI) | payer OTHER, SELFPAY ==
[2024-11-01 10:35] LABS: Add Manual Diff / Slide Review NO; Appearance Urine UA CLEAR; Basophils Absolute Auto 100 /uL (0-100); Bilirubin Urine UA NEGATIVE (NEGATIVE); Color Urine UA YELLOW; Eosinophils Absolute Auto 200 /uL (0-450); Eosinophils Percent Auto 2.3 % (2-4); Glucose Urine UA NEGATIVE (Negative); Hematocrit 45.6 % (36-46); Hemoglobin 15.5 g/dL (12.0-16.0); Ketones Urine UA NEGATIVE (NEGATIVE); Leukocyte Esterase Urine UA NEGATIVE (NEGATIVE); Lymphocytes Absolute Auto 2000 /uL (1100-4500); Lymphocytes Percent Auto 30.6 % (25-40); Mean Corpuscular Hemoglobin 28.6 PG (26-34); Mean Corpuscular Volume 84.1 fL (80-100); Monocytes Absolute Auto 400 /uL (0-900); Monocytes Percent Auto 6.4 % (3-14); Neutrophils Absolute Auto 4000 /uL (1500-7000); Neutrophils Percent Auto 59.7 % (50-75); Nitrite Urine UA NEGATIVE (Negative); Occult Blood Urine UA TRACE-LYSED (Negative); Platelet Count 177 X10^3/uL (150-400); Protein Urine UA NEGATIVE (Negative); Red Blood Cell Count 5.42 X10^6/uL (4.0-5.2); Red Cell Distribution Width 13.7 % (11.6-14.8); Specific Gravity Urine UA <=1.005 (1.000-1.035); Urobilinogen Urine UA 0.2 E.U./dL (0.2); White Blood Cell Count 6.6 X10^3/uL (4.5-11.0)
[2024-11-01 10:58] LABS: Hemoglobin A1C% w Est Avg Glu 5.6 % (4.0-6.0)
[2024-11-01 10:59] LABS: BUN Creatinine Ratio 20.5 (6-22); Blood Urea Nitrogen 17 mg/dL (7-17); Calcium 9.5 mg/dL (8.4-10.2); Carbon Dioxide 28 mmol/L (22-32); Chloride 104 mmol/L (98-107); Estimated Glomerular Filt Rate > 60 mL/min (>60); Glucose 99 mg/dL (70-100); HEMOLYSIS 20 (0-50); Potassium 3.9 mmol/L (3.4-5.1); Sodium 138 mmol/L (137-145)
[2024-11-01 11:02] LABS: Bacteria Urine Occasional (0-1); Culture Indicated Urine Cult Not Indicated; RBC Urine 1-5/HPF (0-5/HPF); Squamous Epithelial Cell Urine 1-5 /HPF (0-5/HPF); Urine Volume 10mL (spun); WBC Urine 1-5/HPF (0-5/HPF)
--- NOTE | 2024-11-01 12:22 | EKG_ITS ---
[address] [id number] [address], [place] [address] Test Date: 2024-11-01 Pat Name: Anthony Mott Department: Room: Gender: Female Special Education Para Professional: CHAVA : 1975 Requested By: Order Number: [id number] Reading MD: Phillip Zuñiga MD Measurements Intervals [place] Rate: 73 P: 58 DE: 164 QRS: 38 QRSD: 76 T: 40 QT: 396 QTc: 436 Interpretive Statements Normal sinus rhythm Electronically Signed On 11-02-2024 7:28:20 PST by Phillip Zuñiga MD
== END ==
PROVIDERS: PCP Internal Medicine; Referring Provider Orthopaedic Surgery; Visit Provider Orthopaedic Surgery
DX: Z01.818 Encounter for other preprocedural examination (principal); Z01.812 Encounter for preprocedural laboratory examination; R73.9 Hyperglycemia, unspecified; N39.0 Urinary tract infection, site not specified; F43.10 Post-traumatic stress disorder, unspecified; F43.81 Prolonged grief disorder; F39 Unspecified mood [affective] disorder; F17.200 Nicotine dependence, unspecified, uncomplicated
CPT/HCPCS: 36415; 80048; 81001; 83036; 85025; 93005; 93010; 99214

== ENCOUNTER 2024-12-26 06:00 | Day surgery (SDC) | payer OTHER, SELFPAY ==
[2024-12-19 12:01] VITALS: BMI 42.0
[2024-12-26] VITALS (9 sets, daily range): BP systolic 83–128; BP diastolic 53–79; PULSE 66–85; RESP 11–18; TEMP 36.2–36.4; O2SAT 97–98; BMI 40.3
--- NOTE | 2024-12-26 06:00 | DI.RAD.S_ITS ---
PROCEDURE: XR KNEE RT 1TO2V INDICATIONS: TKA TECHNIQUE: 2 views of the knee acquired. COMPARISON: [facility] [place], [place], XR KNEE 4+ VIEWS RIGHT, 07/26/2024, 13:53. FINDINGS: Bones: Patient is status post total knee arthroplasty. Hardware components are in expected positions. Visualized bony structures are intact. Soft tissues: Overlying postoperative changes are noted. IMPRESSION: Expected post-operative appearance of a total knee arthroplasty. Approved by: Osbaldo Guevara M.D. on 12/26/2024 at 11:51
[2024-12-26] MEDS: ACETAMINOPHEN 325 MG TABLET 975 MG PO (06:46)
[2024-12-26] MEDS: CELECOXIB 200 MG CAPSULE 400 MG PO (06:47)
[2024-12-26] MEDS: VANCOMYCIN 1,000 MG in SODIUM CHLORIDE 0.9% 250 ML 250 MG IV (07:00)
[2024-12-26] MEDS: FAMOTIDINE 20 MG/2 ML VIAL IV (07:03)
[2024-12-26] MEDS: LACTATED RINGERS 1,000 ML 42 ML IV ×2 (07:03→10:14)
--- NOTE | 2024-12-26 07:35 | PM.PREOP ---
Pre-operative Note Interval Note History & Physical reviewed/Exam performed by Physician: Yes Changes to H&P: No
--- NOTE | 2024-12-26 07:36 | P.OP_ITS ---
Operative Date/Time/Diagnoses Date of procedure: 12/26/24 Time of procedure: 08:00 Pre-op diagnosis: right knee OA Post-op diagnosis: same Procedure & Clinicians Procedure: Right total knee Same procedure as scheduled: Yes Indications: The patient has had progressively worsening right knee pain with radiographic changes consistent with arthritis. Non-operative management has failed and the patient has requested total knee replacement. The risks, benefits and alternatives to surgery were discussed with the patient prior to proceeding. Ris ks discussed included, but were not limited to, failure to relieve pain, stiffness, infection, nerve damage, deep venous thrombosis, pulmonary embolism, stroke, coma, heart attack, permanent paralysis and , as well as the potential need for eventual revision of the prosthetic. Surgeon: Cora Arenas [employer] Technician: Brynn Maravilla Anesthesia Type: Spinal and Peripheral nerve block Operative Notes Findings: Severe right knee OA. Large posterior Chowdary's cyst Closure Type: primary Specimen(s): none sent Prosthetic devices, grafts, tissues, transplants, or devices: Arenas and Nephew kaveh BCS2 size femur 5, size 3 tibia, 32 x 7-1/2 mm patella, +9 poly Estimated Blood Loss (mL): 250 Blood products transfused: none Tourniquet time (min): 111 Procedure in detail: The patient was seen in the pre-operative area, where the patient identified the right knee as the operative site and this was marked with my initials. The patient received pre-operative antibiotics, and was taken to the operating room and placed on the operative table in the supine position. After satisfactory anesthesia, a multimedia author out was performed. The right leg was encircled with a tourniquet about the proximal thigh, and the leg was prepared from the toes to the tourniquet with ChloroPrep in the usual fashion and draped through sterile drapes. The leg was elevated and exsanguinated with Eschmark bandage and the tourniquet inflated to [250] mmHg pressure. A PA was used during the procedure was essential for intraoperative retraction and safe implantation of the components. The knee was approached through an approximately 18 cm incision centered over t he right knee patella and carried into the knee through a medial parapatellar arthrotomy. Portion of the medial and lateral meniscus was resected. Soft tissue was carefully mobilized around the patella the patella was measured with a caliper. Bone was resected from the patella and the patellar height was reconstituted with up an appropriate sized patellar component. A cover was then placed on the patella. A small amount of additional medial and lateral meniscus was resected. The Cori robotic pins were placed for navigation of the knee. A plan was meticulously taken developed an established in order to optimize range motion and stability. The Cori robotic bur was used for the distal femoral resection. It looked like an appropriate distal femoral cut and the cut was made without difficulty. The rotation was assessed and the appropriate size femoral guide was placed on the distal femur and finishing cuts were made. There was no evidence of notching. The anterior, posterior and chamfer cuts were then made. The posterior osteophytes and soft tissues were then removed. The posterior capsule was injected with part of a mixture of 60 ml 0.25% Marcaine mixed with 20 ml Exparel for post operative pain control. The remainder of this mixture was injected into the capsule and subcutaneous tissues during cement curing. She had a very large posterior Chowdary cyst. It was meticulously drained. I did among multiple punctures and multiple drainage of the posterior Chowdary's cyst. The tibial guide was meticulously navigated. The cut was made without difficulty. The rotation was assessed. The patient was placed in extension residual medial and lateral meniscus as well as any residual bone was carefully resected. It was too tight and it was opted to resect 1 mm additional tibia was resected. Hemostasis was achieved especially posteriorly. Additional local was injected into the posterior capsule. The extension gap was assessed. The femoral component was trial was placed and the notch was finished. Trial tibial and femoral components were then placed and the knee placed through a range of motion. After the additional tibial resection. Range of motion was [0-130], with good stability throughout the range. The trials were then removed, and the tibia was finished. The bone was prepared with pulsatile lavage, and dried with a sponge. Cement was applied and the final prosthetics placed. Excess cement was removed during and after cement curing. A brief Betadine soak was performed. After confirming there was no extruded cement posteriorly, the final tibial insert was placed. The knee was copiously irrigated and the tourniquet deflated. Hemostasis was obtained with the Bovie cautery. The capsule was closed with interrupted # 1 suture. The subcutaneous layer was closed with barbed sutures, and the skin with a running 3-0 V-Lock suture and Surgical glue. An [employer] dressing was applied and the patient was taken to recovery having tolerated the procedure well. Complications: none Post-operative Condition: stable Disposition: Acute Care Plan for aftercare: The patient will be maintained on a standard total knee replacement protocol with weight bearing as tolerated. The patient will receive aspirin and sequent ial compression devices for DVT prophylaxis. The patient will be discharged home when safe for the home environment.
[2024-12-26] MEDS: ALBUTEROL/IPRATROPIUM 3 ML AMPUL INH (07:49)
--- NOTE | 2024-12-26 07:53 | SUR.PREOP ---
Block start time [0742] . Monitoring initiated and maintained throughout procedure. Oxygen and medications given per anesthesiologist instructions. Patient remained stable throughout procedure, no adverse reactions noted. Block end time [0748].
[2024-12-26] MEDS: CEFAZOLIN 2 GM/100 ML PREMIX 100 ML IV (08:10)
[2024-12-26] MEDS: TRANEXAMIC ACID 1,000 MG VIAL 1000 MG INJ ×2 (08:15→10:34)
--- NOTE | 2024-12-26 08:41 | SUR.OPER ---
Supine on padded OR bed. Pillow under head, arms secured on padded armboards <90 degree abduction. Safety belt across torso. Non-operative leg secured with tape over blanket over lower leg. Operative leg secured in DeMayo/José Luis/Nathe positioner. Foam padded brace at thigh of operative leg.
[2024-12-26] MEDS: BUPIVACAINE 0.25% (PF) 60 ML, EPINEPHrine 0.3 MG INJ (08:55)
[2024-12-26] MEDS: BUPIVACAINE LIPOSOME 266 MG/20 ML VIAL INJ (08:55)
--- NOTE | 2024-12-26 14:15 | PT.IIE ---
Current Diagnoses Unilateral primary osteoarthritis, right knee (12/26/24) Surgery Performed Operation Date: 12/26/24 07:45 Actual Procedures p Total Knee Arthroplasty - Robot(Right) - Cora Arenas MD Surgical History (Last Updated 12/19/24 @ 13:17 by Yancy Leonard, RN) Anesthesia History of carpal tunnel surgery History of knee surgery History of surgery Hx of tonsillectomy (2019) Medical History (Last Updated 12/19/24 @ 13:18 by Yancy Leonard RN) Acute cystitis ADD (attention deficit disorder) Adjustment disorder with other symptoms Allergic rhinitis Bipolar 2 disorder Cervical strain Generalized anxiety disorder History of ADHD History of colonic polyps HLD (hyperlipidemia) HTN (hypertension) Medial epicondylitis, right elbow Mild persistent chronic asthma with acute exacerbation Mixed hyperlipidemia Obesity (BMI 35.0-39.9 without comorbidity) Peripheral venous insufficiency Prolonged grief disorder PTSD (post-traumatic stress disorder) Restless legs syndrome Symptoms, such as flushing, sleeplessness, headache, lack of concentration, associated with the menopause Synovial cyst of popliteal space [Chowdary], right knee TMJ syndrome Tobacco use disorder Unspecified mood [affective] disorder Varicose veins of bilateral lower extremities with other complications Physical Therapy Inpatient Evaluation/Re-Eval M1 PT/OT-IP Prior Functional Status Start: 12/26/24 15:15 Freq: NEEDED Status: Discharge Protocol: Document 12/26/24 14:15 AB (Rec: 12/26/24 15:41 AB [id number]) Medical Review Prior Functional Status Medical History Reviewed Yes Communication able to make needs known; seems a little drowsy Mobility and Gait pt stated that she was modified independent with all mobilities and ambulation without AD but uses SPC for outdoor long distance mobility Social History Household Members spouse Living Arrangements House Number of Floors (Floors) One Floor Number of Stairs To Enter/Railing? 1 step to enter the house Home Environment Standard Height Toilet,Tub/ Shower Home Equipment Front Wheel Walker,Straight Cane,Hand Held Shower Additional Social History Comment pt works as a caregiver spouse will be able to assist pt. M2 PT-IP Current Condition Start: 12/26/24 15:15 Freq: NEEDED Status: Discharge Protocol: Document 12/26/24 14:15 AB (Rec: 12/26/24 15:41 AB [id number]) Physical Therapy Current Condition Current Condition Evaluation Date 12/26/24 Treatment Diagnosis s/p RTKA; difficulty in walking Onset Date 12/26/24 M3 PT-IP Subjective Start: 12/26/24 15:15 Freq: NEEDED Status: Discharge Protocol: Document 12/26/24 14:15 AB (Rec: 12/26/24 15:41 AB [id number]) Subjective Physical Therapy Visit Type Type Initial Evaluation Visit Start Time 14:15 Visit Stop Time 14:55 Number of PLATE MOUNTER Visits 0 Physical Therapy Visit Comments Patient Comments agreeable to do PT Therapy Pain Assessment Pain When Pain Assessed At Rest Pain Present Pain Present Pain Reported Location Right Knee Intensity 5 Scale Used Numeric (0 - 10) Pain Management Techniques Distraction,Modification of Treatment,Re-positioning, Timing of Activity with Medications Left Eye Scale Used pain scale not stated Description Stabbing M4 PT-IP Mobility and Gait Start: 12/26/24 15:15 Freq: NEEDED Status: Discharge Protocol: Document 12/26/24 14:15 AB (Rec: 12/26/24 15:41 AB [id number]) PT-Bed Mobility Assessment Supine to Sit Supine to Sit Standby Assistance PT-Transfer Assessment Sit to and From Stand Sit to and from Stand Contact Guard Assistance, Minimal Assistance,1 Person Assistance,Use of Upper Extremities Equipment Transfer Assistive Device Gait Belt,Front Wheeled Walker Orthotic/Prosthetic Devices or Brace: No Transfers Transfer Technique ambulated Transfer Ability Level of Assist Contact Guard Assistance, Minimal Assistance,1 Person Assistance,Use of Upper Extremities Comments Mobility Comments pt seen at PACU. pt in bed and spouse in room. obtained PLOF and home set up. post-op folder provided and reviewed contents. educated pt regarding HEP. BP: 114/72. pt completed supine to sit SBA . c/o slight dizziness/ lightheadedness. BP checked: 123/74. pt able to sit on EOB SBA. sit to stand CGA to min A and max cues for techniques . pt seems drowsy and needs repeated cues for safety. pt ambulated ~ 30 ft using FWW CGA to min A and cues for R quads activation. slight R knee buckling in late stance. cued pt for steadiness. pt sat back on EOB. educated pt regarding use of safety belt and how to assist pt. spouse was able to put safety belt on pt and assisted pt with sit to stand and ambulation using FWW ~ 30 ft. (+) LOB during turning. spouse was able to steady pt. cued pt to slow down. informed spouse to provide cues to pt for safety. stair climbing training: educated pt and spouse on how to go up/down platform step using FWW. pt completed up/ down step stool using FWW min A with PT initially assisting. pt completed again with spouse assisting and completed safety. pt ambulated back to EOB using FWW with spouse assisting. pt and spouse without further concerns or questions. left pt with OT. Gait Assessment Gait Gait Assistance Required: Contact Guard Assist,Minimum Assistance Distance (Feet) 30 Able to Maintain Weight Bearing Status Yes During Gait Assistive Devices Assistive Device Gait Belt,Front Wheeled Walker Orthotic/Prosthetic Devices or Brace: No Gait Deviations General Gait Pattern Antalgic,Decreased Stride Length,Decreased Feet Clearance Factors Limiting Gait Function Factors Limiting Gait Function Decreased Activity Tolerance, Decreased Strength,Difficulty Following Directions,Limited Range of Motion,Pain,Poor Balance,Poor Safety Awareness Stair Climbing Assessment Evaluation Level of Assist On Stairs Minimal Assistance Devices Stair Climbing Assistive Devices Front Wheel Walker Technique/Endurance Stair Climbing Direction Ascend and Descend Stair Climbing Technique Step to Step Number of Steps Climbed 1 Query Text: Stair Climbing Set # Repetitions (reps) 2 PT-Balance Assessment Sitting Balance and Reactions Static Sitting Balance Ability Normal Dynamic Sitting Balance Ability Normal Standing Balance and Reactions Static Standing Balance Ability Good Dynamic Standing Balance Ability Fair Device Used FWW M5 PT-IP Objective Assessments Start: 12/26/24 15:15 Freq: NEEDED Status: Discharge Protocol: Document 12/26/24 14:15 AB (Rec: 12/26/24 15:41 AB [id number]) Orientation Orientation/Cognition Level of Alertness Alert Orientation Name,Place,Situation Language Function Ability No Deficits Noted Safety Awareness Decreased Safety Awareness Memory Description No Deficits Noted Comments slightly drowsy Gross Range of Motion Lower Extremity ROM Assessment Right Impaired Impairments R knee flexion: ~ 60 deg R knee extension: ~ 30 deg less to 0 Strength Lower Extremity Strength Assessment Right Impaired Hip 3+/5 Knee 3+/5 Coordination Assessment Gross Coordination Gross Coordination WNL Muscle Tone Muscle Tone WNL Yes M6 PT-IP Treatment Start: 12/26/24 15:15 Freq: NEEDED Status: Discharge Protocol: Document 12/26/24 14:15 AB (Rec: 12/26/24 15:41 AB [id number]) Physical Therapy Treatment Education Education Provided Precautions,Weight Bearing Status,Post-Op Packet,Safety M7 PT-IP Assessment and Plan Start: 12/26/24 15:15 Freq: NEEDED Status: Discharge Protocol: Document 12/26/24 14:15 AB (Rec: 12/26/24 15:41 AB [id number]) PT Summary Assessment and Plan Potential Rehabilitation Potential Fair Status of Condition at Evaluation Evolving Summary Impairments Pain,ROM,Strength,Balance, Coordination,Sensation,Tone, Cognition,Bed Mobility, Transfers,Gait,Activity Tolerance Assessment Summary pt seen in PACU. pt is a 49 y/ o F s/p R TKA POD0. pt is WBAT on RLE. pt requiring CGA to min A with mobility using FWW. Caregiver training conducted and spouse was able to assist pt. pt plans to go home later today. Goals Bed Mobility Goal Independent Transfer Goal Independent,Front Wheeled Walker Gait Goal Independent,Front Wheel Walker Gait Distance 200 Other Goals up/down 1 step using fWW mod I Days to Meet Goals 5 Frequency of Treatment Frequency Of Treatment Twice a Day Treatment Plan Physical Therapy Treatment Plan Bed Mobility Training,Transfer Training,Gait Training, Therapeutic Exercise,Balance Retraining,Post Op Education, Discharge Planning,Hot or Cold Pack,Neuromuscular Re-ed, Coordination Retraining,Manual Therapy Weight Bearing Status Weight Bearing Status Weight Bear as Tolerated Allowed Weight Bearing Amount (enter % RLE WBAT or #) (%) Recommendations To Nursing Amount of Assist Needed 1 Person Assist Discharge Recommendations PT Discharge Recommendations Home with Assistance, Outpatient PT Transportation Needs at Discharge Private Vehicle - PT assist 1
[2024-12-26] MEDS: OXYCODONE IR 5 MG TABLET PO (14:20)
--- NOTE | 2024-12-26 15:00 | OT.IP.EVAL ---
Current Diagnoses Unilateral primary osteoarthritis, right knee (12/26/24) Surgery Performed Operation Date: 12/26/24 07:45 Actual Procedures p Total Knee Arthroplasty - Robot(Right) - Cora Arenas MD Past Medical History (Last Updated 12/19/24 @ 13:18 by Yancy Leonard, RN) Acute cystitis ADD (attention deficit disorder) Adjustment disorder with other symptoms Allergic rhinitis Bipolar 2 disorder Cervical strain Generalized anxiety disorder History of ADHD History of colonic polyps HLD (hyperlipidemia) HTN (hypertension) Medial epicondylitis, right elbow Mild persistent chronic asthma with acute exacerbation Mixed hyperlipidemia Obesity (BMI 35.0-39.9 without comorbidity) Peripheral venous insufficiency Prolonged grief disorder PTSD (post-traumatic stress disorder) Restless legs syndrome Symptoms, such as flushing, sleeplessness, headache, lack of concentration, associated with the menopause Synovial cyst of popliteal space [Chowdary], right knee TMJ syndrome Tobacco use disorder Unspecified mood [affective] disorder Varicose veins of bilateral lower extremities with other complications Surgical History (Last Updated 12/19/24 @ 13:17 by Yancy Leonard RN) Anesthesia History of carpal tunnel surgery History of knee surgery History of surgery Hx of tonsillectomy (2019) Occupational Therapy Inpatient Evaluation/Re-Eval M2 OT-IP Current Condition Start: 12/26/24 15:08 Freq: Status: Discharge Protocol: Document 12/26/24 15:08 [facility] (Rec: 12/26/24 15:22 [facility] Desktop) Occupational Therapy Current Condition Current Condition Evaluation Date 12/26/24 Treatment Diagnosis S/P R TKA Diagnosis Onset Date 12/26/24 Weight Bearing Status Weight Bearing Status Weight Bear as Tolerated M3 OT- IP Subjective and Pain Start: 12/26/24 15:08 Freq: Status: Discharge Protocol: Document 12/26/24 15:08 [facility] (Rec: 12/26/24 15:22 [facility] Desktop) OT- Subjective Occupational Therapy Visit Type Type Initial Evaluation Visit Start Time 14:10 Visit Stop Time 15:00 Occupational Therapy Visit Comments Patient Comments Pt agreed to get up and there for caregiver training. Patient/Caregiver Goals TO go home. OT Pain Assessment Pain When Pain Assessed At Rest Pain Present Pain Present Pain Reported Location Right Knee Intensity 5 Scale Used Numeric (0 - 10) Left Eye Intensity 9 Scale Used Numeric (0 - 10) M4 OT- IP ADL's Start: 12/26/24 15:08 Freq: Status: Discharge Protocol: Document 12/26/24 15:08 [facility] (Rec: 12/26/24 15:22 [facility] Desktop) OT SLL-Ayyj-Wyoy[place] Comments OT Self-Feeding Comments Not performed. OT ADL-Grooming Comments OT Grooming Comments Not performed. OT ADL-Oral Care Comments Oral Care Comments Not performed. OT ADL-Dressing Comments OT Dressing Comments At this time pt will need assist for LB dressing needs. Educated to dress the RLE first and take out last. Also educated to be mindful not to twist her RLE during ADL and mobility needs. OT ADL-Toileting Comments OT Toileting Comments Pt's toilet at home is far away and suggested pt get a BSC. Pt states to decrease her water intake at night and stop one of her medications temporarily. Suggested pt talk to her doctor prior to stopping any of her medications. Also suggested besides the BSC, use of pads/brief. OT ADL-Bathing Comments OT Bathing Comments Showed pt's of suggestion of tub bench versus shower chair. Also educated on care of the dressing while showering. M6 OT- IP Functional Cognition Start: 12/26/24 15:08 Freq: Status: Discharge Protocol: Document 12/26/24 15:08 [facility] (Rec: 12/26/24 15:22 [facility] Desktop) Cognitive Factors Limiting Selfcare Function Cognitive Ability Level of Alertness Alert Patient Orientation Name,Place,Situation Attention Span Ability Capable of Focused Attention Ability to Follow Commands Able to Follow One Step Commands Cognitive Comments Cognitive Assessment Comments Pt is a bit groggy yet for surgery and needing repeated commands to follow. OT- Vision and Hearing OT- Hearing Assessment OT- Hearing Assessment WFL M7 OT- IP Mobility and Balance Start: 12/26/24 15:08 Freq: Status: Discharge Protocol: Document 12/26/24 15:08 [facility] (Rec: 12/26/24 15:22 [facility] Desktop) OT- Bed Mobility Assessment Sit to Supine Sit to Supine Assist Standby Assistance OT-Transfer Assessment Sit to and From Stand Sit to and from Stand Contact Guard Assistance, Minimal Assistance Transfers Transfer Ability Contact Guard Assistance, Minimal Assistance Technique Transfer Destination Bed Transfer Technique Stand Step Pivot Devices Transfer Assistive Devices Gait Belt,Front Wheeled Walker Comments Mobility Comments CGA to BEHZAD to stand from the bed and transfer. Pt needing cues to help with pt's safety especially to prevent her RLE from buckling. Able to take about car transfer with pt's . OT- Balance Assessment Sitting Balance and Reactions Static Sitting Balance Ability Good Dynamic Sitting Balance Ability Good Standing Balance and Reactions Static Standing Balance Ability Fair Dynamic Standing Balance Ability Fair M8 OT- IP Objective Assessments Start: 12/26/24 15:08 Freq: Status: Discharge Protocol: Document 12/26/24 15:08 [facility] (Rec: 12/26/24 15:22 [facility] Desktop) OT Strength Comments Strength Comments WFL for needs. M9 OT- IP Assessment and Plan Start: 12/26/24 15:08 Freq: Status: Discharge Protocol: Document 12/26/24 15:08 [facility] (Rec: 12/26/24 15:22 [facility] Desktop) OT Summary Assessment and Plan Potential Rehabilitation Potential Excellent Analytic Complexity at Evaluation Low Summary OT Impairments Pain,Strength,Balance, Functional Cognition, Functional Mobility,Grooming, Dressing,Toileting,Bathing, Toilet Transfers,Shower Transfers,Activity Tolerance Progress Towards Goals Progressing Toward Goals,Slow Progress due to Pain,Slow Progress due to Medical Issues Assessment Summary Pt low complexity and main barriers are pain, pt still groggy, and at times buckling with RLE. Pt and her able to participate in caregiver training. Also suggested pt to be extra careful around her 3 dogs. Pt to go home with 24/7 assist and have outpt PT. Goals Dressing Goal Independent Toileting Goal Independent Bathing Goal Independent Toilet Transfer Goal Independent Shower Transfer Goal Independent Days to Meet Goals 7 Frequency of Treatment Frequency Of Treatment Once a Day Treatment Plan OT Treatment Plan ADL Training,Patient/Family Education,Discharge Planning Discharge Recommendations OT Discharge Recommendations Home with 24/7 Assist Available Transportation Needs at Discharge Private Vehicle
== END 2024-12-26 15:17 | disposition home or self-care (01) ==
LOC: OR 06:01 → AC 06:04
PROVIDERS: PCP Internal Medicine; Referring Provider Orthopaedic Surgery; Visit Provider Orthopaedic Surgery
PROC: 0SRC0JZ Replacement of Right Knee Joint with Synthetic Substitute, Open Approach (ICD-10-PCS; CPT 27447; principal; 2024-12-26 07:45)
DX: M17.11 Unilateral primary osteoarthritis, right knee (principal); G89.18 Other acute postprocedural pain; M71.21 Synovial cyst of popliteal space [Baker], right knee; M25.761 Osteophyte, right knee
CPT/HCPCS: 27447; 64450; 73560; 97162; 97165; 97530; 97535; C1776; C1713; J0171; J0666; J0690; J2250; J2405; J2704; J3010

== ENCOUNTER → 2025-07-03 11:45 | Outpatient (CLI) | payer OTHER, SELFPAY ==
[2025-07-03 13:15] LABS: Hematocrit 42.3 % (36-46); Hemoglobin 14.4 g/dL (12.0-16.0); Mean Corpuscular HGB Conc 34.1 % (30-36); Mean Corpuscular Hemoglobin 28.3 PG (26-34); Mean Corpuscular Volume 83.2 fL (80-100); Platelet Count 146 X10^3/uL (150-400)
[2025-07-03 13:22] LABS: Hemoglobin A1C% w Est Avg Glu 5.4 % (4.0-6.0)
[2025-07-03 13:36] LABS: Alanine Aminotransferase 23 IU/L (<35); Albumin 4.6 g/dL (3.5-5.0); Albumin Globulin Ratio 1.6 (1.0-2.8); Alkaline Phosphatase 76 U/L (38-126); Blood Urea Nitrogen 15 mg/dL (7-17); Calcium 9.5 mg/dL (8.4-10.2); Carbon Dioxide 24 mmol/L (22-32); Chloride 106 mmol/L (98-107); Cholesterol 174 mg/dL (140-199); Estimated Glomerular Filt Rate > 60 mL/min (>60); Globulin 2.8 g/dL (1.7-4.1); Glucose 94 mg/dL (70-99); HDL Cholesterol 44 mg/dL (40-60); HEMOLYSIS < 15 (0-50); Potassium 4.1 mmol/L (3.4-5.1); Sodium 140 mmol/L (137-145); Total Protein 7.4 g/dL (6.3-8.2); Triglycerides 224 mg/dL (35-150)
[2025-07-03 14:17] LABS: TSH w/ Reflex to FT4 1.98 uIU/mL (0.47-4.68)
== END ==
PROVIDERS: PCP Internal Medicine; Referring Provider Internal Medicine; Visit Provider Internal Medicine
DX: F31.81 Bipolar II disorder (principal); E78.2 Mixed hyperlipidemia; R73.01 Impaired fasting glucose
CPT/HCPCS: 36415; 80053; 80061; 83036; 84443; 85027

== ENCOUNTER 2025-07-26 11:55 | Emergency (ER) | payer OTHER, SELFPAY ==
[2025-07-26 12:23] VITALS: BP 126/90; PULSE 89; RESP 16; TEMP 36.4; O2SAT 99; BMI 33.8
--- NOTE | 2025-07-26 12:26 | DI.US.S_ITS ---
PROCEDURE: US PERIPH VENOUS LOW EXTREM LT
--- NOTE | 2025-07-26 12:30 | ED_ITS ---
<Statement entered by Phillip Guerra, DO - 07/27/25 07:48>
--- NOTE | 2025-07-26 12:30 | ED.EXTPRO ---
HPI - Extremity Problem General Chief complaint: Extremity Injury, Upper Stated complaint: L calf swollen, tender 1wk, PCref to rule out clot Time Seen by Provider: 07/26/25 12:29 History of Present Illness HPI Narrative: Ms. Mott is a pleasant 49-year-old female with a past medical history of HTN, HLD, PTSD, ADD, bipolar 2, knee osteoarthritis with Chowdary cyst, venous insufficiency, asthma, tobacco use who presents to the emergency department for left calf pain x1 week. Patient states she did not have an inciting injury however she developed pain in the left calf last , this pain occasionally spreads to the posterior left thigh as well. States that the pain causes her to have pain in her chest as well for the last week but she does not feel as though the chest pain is independent of this. She does occasionally feel short of breath as well but she attributes this to her smoking. She has also been having some headaches. She denies history of VTE, blood thinner use, hormone use, recent prolonged travel. She did have a right knee replacement in December of this year with Dr. Arenas. She denies flu-like symptoms, fevers, chills. States that PCP sent her here for DVT rule out. Related Data Home Medications ?Medication ?Instructions ?Recorded ?Confirmed cholecalciferol (vitamin D3) 125 125 mcg PO DAILY 12/23/22 07/03/25 mcg (5,000 unit) capsule omega-3 fatty acids 1,000 mg 1,000 mg PO DAILY 12/23/22 07/03/25 capsule phytonadione (vitamin K1) 100 mcg 100 mcg PO DAILY 12/23/22 07/03/25 tablet aspirin 81 mg capsule 81 mg PO PRN PRN Pain 12/19/24 07/03/25 Previous Rx's ?Medication ?Instructions ?Recorded psyllium husk (with sugar) 3.4 1 tsp PO BID #822 grams 03/26/23 gram/7 gram oral powder (Fiber (psyllium husk-sugar)) montelukast 10 mg tablet 10 mg PO BEDTIME #90 tabs 07/25/24 (Singulair) nicotine (polacrilex) 4 mg gum 4 mg buccal Q2H PRN nicotine 09/06/24 cravings #100 ea clonidine HCl 0.1 mg tablet See Rx Instructions .Route 02/14/25 .COMPLEX PTSD #180 tabs lamotrigine 100 mg tablet 50 mg (1/2 x 100 mg) PO DAILY #45 02/14/25 tabs topiramate 50 mg tablet 50 mg PO BEDTIME #90 tabs 07/02/25 atorvastatin 40 mg tablet 40 mg PO DAILY #90 tabs 07/03/25 azelastine 137 mcg (0.1 %) nasal 2 spray intranasal BID #90 mL 07/03/25 spray loratadine 10 mg tablet 10 mg PO DAILY #90 tabs 07/03/25 meloxicam 15 mg tablet 15 mg PO DAILY #90 tabs 07/03/25 albuterol sulfate 90 mcg/actuation 2 puff inhalation Q6H PRN 07/26/25 aerosol inhaler shortness of breath or wheezing #8.5 grams apixaban 5 mg (74 tabs) tablets in See Rx Instructions PO .COMPLEX 07/26/25 a dose pack (Funky Moves DVT-PE Treat #74 ea 30D Start) Allergies Allergy/AdvReac Type Severity Reaction Status Date / Time adhesive Allergy Intermediate Rash Verified 07/03/25 11:04 Steroid AdvReac Severe Agitated Uncoded 07/03/25 11:04 Raquel AdvReac Intermediate Swelling Uncoded 07/03/25 11:04 of the Eye Review of Systems Review of Systems ROS Unobtainable: All systems reviewed & are unremarkable except as noted in HPI and below Patient History Medical History HTN (hypertension) HLD (hyperlipidemia) Symptoms, such as flushing, sleeplessness, headache, lack of concentration, associated with the menopause History of ADHD Prolonged grief disorder Unspecified mood [affective] disorder Acute cystitis Cervical strain Medial epicondylitis, right elbow Mild persistent chronic asthma with acute exacerbation Varicose veins of bilateral lower extremities with other complications Peripheral venous insufficiency History of colonic polyps TMJ syndrome Restless legs syndrome Tobacco use disorder Synovial cyst of popliteal space [Chowdary], right knee Bipolar 2 disorder Obesity (BMI 35.0-39.9 without comorbidity) ADD (attention deficit disorder) Allergic rhinitis PTSD (post-traumatic stress disorder) Generalized anxiety disorder Mixed hyperlipidemia Adjustment disorder with other symptoms Surgical History History of total right knee replacement (12/26/24) Hx of tonsillectomy (2019) History of surgery Anesthesia History of knee surgery History of carpal tunnel surgery Family History Father Cancer Mother Hypertension Hyperlipidemia Mental health problem Social History marital status: details: N/A number of children: 1 household members: spouse housing: house pets and animals: Yes education level: other occupational status: employed current occupational exposures/hazards: No special javier needs: No travel history: other leisure activities: exercise and reading seatbelt use: always helmet use: No do you feel safe at home: Yes Tobacco: How many years used: 32 alcohol intake: former during the past year weight has: decreased > 10 lbs well-balanced diet: about half the time daily servings fruits/ve or more times/day caffeine: Yes eating out: rarely or never Type(s) of exercise: walking, regular exercise and normal ROM and activity frequency: 1-2 times per week duration: < 15 minutes/day tobacco type: cigarettes alcohol intake frequency: a few times a week Exam Narrative Exam Narrative: GENERAL: 49 year old patient appears stated age. Overweight patient, in no acute distress. HEAD: Atraumatic. Normocephalic. EYES: No scleral icterus. No injection or drainage. NECK: Trachea midline. Cervical ROM intact. CARDIOVASCULAR: Regular rate and rhythm. RESPIRATORY: ?Nonlabored respirations. ?Speaking in clear, full sentences. ?Faint expiratory wheezing bilateral upper lobes, no rales or rhonchi. EXTREMITIES: Tenderness to palpation of left calf, slight spider veins distal lower leg. Strong DP and PT pulse palpable. No palpable left knee pain. No medial or lateral malleolus pain. NEURO: AOx3. ?Clear speech. ?Moves all 4 extremities appropriately. SKIN: No rash or erythema of visible areas Initial Vital Signs Initial Vital Signs: Vital Signs Temperature 97.6 F 07/26/25 12:23 Pulse Rate 89 07/26/25 12:23 Respiratory Rate 16 07/26/25 12:23 Blood Pressure 126/90 07/26/25 12:23 Pulse Oximetry 99 07/26/25 12:23 Oxygen Delivery Method Room Air 07/26/25 12:23 Scores HEART Score Heart Score history: Slightly Suspicious Heart Score EKG: Normal Heart Score Age: 45-64 years old Heart Score risk factors: 1-2 risk factors Heart Score troponin: < or = to normal limit Heart Score Total: 2 PERC Score Age greater than or equal to 50 years: No Heart rate greater than or equal to 100 bpm: No Room Air O2 Sat less than 95%: No Unilateral leg swelling: Yes Recent trauma or surgery: No Hemoptysis: No Prior PE or DVT: No Hormone Use: No Total PERC Score: 1 Wells' Criteria for PE Clinical signs and symptoms of DVT: Yes PE is #1 Dx or equally likely: No Heart rate > 100: No Immobilization at least 3 days or surg in previous 4 weeks: No History of PE or DVT: No Hemoptysis: No Malignancy w/Treatment within 6 months or palliative: No Wells' PE Score total: 3 Course Orders Ordered: ED Orders 07/26/25 12:26 US periph venous low extrem lt Stat EKG-12 Lead Stat 07/26/25 12:32 CBC Auto Diff [Complete Blood Count AUTO DIFF] Stat CMP [Comprehensive Metabolic Panel] Stat D Dimer Stat Troponin & CK Cardiac Panel Stat 07/26/25 12:36 XR chest 1V Stat 07/26/25 13:09 CT angio chest PE protocol Stat Discontinued Medications Albuterol/Ipratropium (Albuterol/Ipratropium 3 Ml Ampul) 3 ml INH NOW ONE Stop: 07/26/25 12:37 Last Admin: 07/26/25 13:09 Dose: 3 ml Documented By: CELINE Apixaban (Apixaban 5 Mg Tablet) 10 mg PO NOW ONE Stop: 07/26/25 15:29 Last Admin: 07/26/25 15:42 Dose: 10 mg Documented By: JESSE Aspirin (Aspirin 81 Mg Chew Tab) 324 mg PO NOW ONE Stop: 07/26/25 12:29 Last Admin: 07/26/25 12:31 Dose: 324 mg Documented By: CTS Vital Signs Vital signs: Vital Signs - 8 hr 07/26/25 12:23 07/26/25 13:13 07/26/25 15:03 Temperature 97.6 F Pulse Rate 89 89 78 Respiratory Rate 16 18 16 Blood Pressure 126/90 119/68 Pulse Oximetry 99 99 97 Oxygen Delivery Method Room Air Room Air Room Air Oxygen Flow Rate 0 Fraction of Inspired Oxygen 21 MDM - Extremity (Nontraumatic) Medical Records Attestation: I reviewed the patient's medical records. Lab Data 07/26/25 12:32 07/26/25 12:32 Labs: Lab Results 07/26/25 Range/Units 12:32 WBC 7.0 (4.5-11.0) X10^3/uL RBC 5.32 H (4.0-5.2) X10^6/uL Hgb 15.4 (12.0-16.0) g/dL Hct 44.1 (36-46) % MCV 83.0 (80-100) fL MCH 28.9 (26-34) PG MCHC 34.8 (30-36) % RDW 13.5 (11.6-14.8) % Plt Count 155 (150-400) X10^3/uL Neut % (Auto) 57.9 (50-75) % Lymph % (Auto) 33.8 (25-40) % Young % (Auto) 5.3 (3-14) % Eos % (Auto) 2.3 (2-4) % Baso % (Auto) 0.7 (0-2) % Neut # (Auto) 4100 (2016-7124) /uL Lymph # (Auto) 2400 (3055-7072) /uL Young # (Auto) 400 (0-900) /uL Eos # (Auto) 200 (0-450) /uL Baso # (Auto) 100 (0-100) /uL D-Dimer 1275 H (<500) ng/ml Sodium 139 (137-145) mmol/L Potassium 4.2 (3.4-5.1) mmol/L Chloride 106 (98-107) mmol/L Carbon Dioxide 23 (22-32) mmol/L BUN 22 H (7-17) mg/dL Creatinine 0.85 (0.52-1.04) mg/dL Estimated GFR > 60 (>60) mL/min BUN/Creatinine Ratio 25.9 H (6-22) Glucose 104 H (70-99) mg/dL Calcium 9.5 (8.4-10.2) mg/dL Total Bilirubin 0.5 (0.2-1.3) mg/dL AST 27 (14-36) IU/L ALT 27 (<35) IU/L Alkaline Phosphatase 80 (38-126) U/L Total Creatine Kinase 97 (30-135) U/L Troponin I < 0.012 (0.01-0.034) ng/mL Total Protein 8.5 H (6.3-8.2) g/dL Albumin 4.9 (3.5-5.0) g/dL Globulin 3.6 (1.7-4.1) g/dL Albumin/Globulin Ratio 1.4 (1.0-2.8) Imaging Data LLE Venous US: Radiologist's Impression: PROCEDURE: US PERIPH VENOUS LOW EXTREM LT INDICATIONS: LEFT CALF SWELLING X 1 WEEK TECHNIQUE: Real-time imaging, as well as color and pulse Doppler interrogation, were performed of the lower extremity deep veins from the inguinal ligament to the popliteal fossa, with documentation of the visualized calf veins. COMPARISON: None. FINDINGS: The common femoral, femoral, popliteal, and the visualized calf veins are normally compressible, and free of intraluminal thrombus. Color and pulse Doppler demonstrate normal phasic intraluminal flow. There is normal augmentation response to distal compression maneuver. IMPRESSION: No findings of lower extremity deep venous thrombosis. Dictated by: Tavares Ramirez M.D. on 07/26/2025 at 13:15 Approved by: Tavares Ramirez M.D. on 07/26/2025 at 13:15 Chest x-ray: Radiologist's Impression: PROCEDURE: XR CHEST 1V INDICATIONS: cp, cob, wheezing TECHNIQUE: One view of the chest was acquired. COMPARISON: [facility], XR CHEST 2V, 09/01/2023, 17:26. FINDINGS: Surgical changes and devices: None. Lungs and pleura: Lungs are clear. No pleural effusions or pneumothorax. Mediastinum: Mediastinal contours appear normal. Heart size is normal. Bones and chest wall: No suspicious bony lesions. Overlying soft tissues appear unremarkable. IMPRESSION: No acute cardiopulmonary abnormality is seen. Dictated by: Tavares Ramirez M.D. on 07/26/2025 at 13:49 Approved by: Tavares Ramirez M.D. on 07/26/2025 at 13:49 Chest CTA: Radiologist's Impression: PROCEDURE: CT ANGIO CHEST PE PROTOCOL INDICATIONS: CP, SOB, calf pain, elevated dimer TECHNIQUE: After the administration of intravenous contrast, 2 mm thick sections acquired from the pulmonary apices to the posterior costophrenic angles. 3-dimensional maximum intensity projection (MIP) coronal and sagittal reformats were then acquired through the thorax. For radiation dose reduction, the following was used: automated exposure control, adjustment of mA and/or kV according to patient size. COMPARISON: None. FINDINGS: Image quality: Diagnostic. Pulmonary arteries: Focal region of decreased attenuation in segmental right pulmonary artery Lower Neck: No enlarged lymph nodes. Thyroid: No thyroid nodules which require sonographic follow up, per consensus guidelines. Axillae: No enlarged lymph nodes. Chest Wall: Unremarkable. Bones: Unremarkable. Lungs and Pleura: No pneumothorax or pleural effusions. No consolidation or suspicious nodules. Mosaic attenuation of the lungs. Heart: Heart size is normal. No pericardial effusion. Thoracic Vessels: No aortic aneurysm. Mediastinum and Tanisha: No enlarged lymph nodes. Esophagus: No wall thickening. No hiatal hernia. Upper Abdomen: Visualized upper abdomen solid organs and bowel loops appear normal. IMPRESSION: Equivocal for pulmonary embolism. Possible filling defect and right upper lobe segmental artery versus artifact. Dictated by: Tavares Ramirez M.D. on 07/26/2025 at 14:05 Approved by: Tavares Ramirez M.D. on 07/26/2025 at 14:13 MDM Narrative Medical decision making narrative: 49-year-old female with a past medical history of HTN, HLD, PTSD, ADD, bipolar 2, knee osteoarthritis with Chowdary cyst, venous insufficiency, asthma, tobacco use who presents to the emergency department for left calf pain x1 week. Differential diagnosis includes but is not limited to left lower leg DVT, venous insufficiency, calf strain, sprain, Chowdary cyst, PE, reactive airway disease, etc. On exam the patient is in no acute distress, nontoxic-appearing, all vital signs within normal limits. She does have tenderness to palpation of the left calf, wells criteria for PE is 3. Patient reports chest pain shortness of breath as a secondary chief complaint during review of systems. She does have subtle wheezing which he attributes to her chronic smoking. We will obtain left lower extremity venous ultrasound, CBC, CMP, troponin, D-dimer, chest x-ray, aspirin, DuoNeb. EKG reveals normal sinus rhythm with a rate of 82 beats per minute, no ST segment elevation or depression. QTC 425. D-dimer elevated 1275, CTA ordered for further eval of PE. Normal WBC count 7.0, hemoglobin 15.4, hematocrit 44.1. Sodium 139, potassium 4.2, BUN 22, creatinine 0.85. Glucose 104. Undetectable troponin. Left lower extremity venous ultrasound reveals no DVT. Chest CTA however reveals equivocal for pulmonary embolism, possible filling defect and right upper lobe segmental artery versus artifact. Discussed the case with the attending ED physician Dr. Guerra, given elevated D-dimer and patient's symptoms we will treat as acute PE with Eliquis PE dosing, 10mg BID x 7 days followed by 5mg BID. Discussed all results with the patient and printed imaging results. She denies history of hemorrhagic stroke, recent fall or trauma, recent surgery, GI bleeding or any other bleeding concerns. She is agreeable to Eliquis initiation. She is hemodynamically stable, no heart strain, advised follow up with PCP promptly possible follow up with Hematology for further evaluation of cause. Encouraged elevation of legs, avoid deep massage, avoid NSAIDs, strict ER return precautions. Patient verbalized understanding of all information agreeable with the plan. She is ambulatory and stable for discharge home, 1st dose of Eliquis given in the ED, all vital signs within normal limits. Discharge Plan Departure Patient Disposition: Home Clinical Impression: Pain of left calf Pulmonary embolism Qualifiers: Pulmonary embolism type: single subsegmental (without acute cor pulmonale) Qualified Code(s): I26.93 - Single subsegmental thrombotic pulmonary embolism without acute cor pulmonale Instructions: DI for Pulmonary Embolism, Apixaban Activity Restrictions/Additional Instructions: Dear Ms. Mott, Thank you for coming to the emergency department. Today you were evaluated for left calf pain, chest pain, shortness of breath. The ultrasound of your leg did not reveal a blood clot however the CT scan of your chest revealed a possible blood clot in the right side of your lung. We are starting you on blood thinners called Eliquis. It is important that you do not take any other NSAIDs while on this medication including but not limited to aspirin, ibuprofen, Motrin, meloxicam. You have been prescribed the 1st 30 days of this medication however you will need to be on it for at least a minimum of 3 months and need to speak with your primary care doctor for further management. They may refer you to hematology for further evaluation of why you developed with a blood clot. Please rest, hydrate, elevate the legs, avoid deep massage of the calf. Return to the ER immediately if you develop worsening symptoms, fevers or any other concerns. Please be aware that while you are on blood thinners you will bleed more easily and you need to be careful to avoid injuring herself. Return to the ER immediately if you have bloody stool. Please follow up with your primary care doctor within the next 2-3 days for ER follow-up. (If you do not have a PCP you can call [phone]. ?to schedule an appointment with an [facility] Primary Care Provider) IF YOU DEVELOP ANY NEW OR WORSENING SYMPTOMS, RETURN TO THE ER! Please read the attached instructions, they highlight more specific treatments and interventions for you at home. Thank you for letting me participate in your care, Aliya Roman PA-C Prescriptions: New Eliquis DVT-PE Treat 30D Start 5 mg (74 tabs) tablets,dose pack See Rx Instructions .ROUTE .COMPLEX Qty: 74 0RF Rx Instructions: orally per package directions No Action nicotine (polacrilex) 4 mg gum 4 mg buccal Q2H PRN (Reason: nicotine cravings) Qty: 100 5RF lamotrigine 100 mg tablet 50 mg PO DAILY Qty: 45 1RF clonidine HCl 0.1 mg tablet See Rx Instructions .ROUTE .COMPLEX Qty: 180 1RF Rx Instructions: Take one tablet by mouth at bedtime. If tolerated, can increase to one tablet by mouth twice per day.; topiramate 50 mg tablet 50 mg PO BEDTIME Qty: 90 0RF albuterol sulfate 90 mcg/actuation HFA aerosol inhaler 2 puff inhalation Q6H PRN (Reason: shortness of breath or wheezing) Qty: 8.5 5RF omega-3 fatty acids 1,000 mg capsule 1,000 mg PO DAILY cholecalciferol (vitamin D3) 125 mcg (5,000 unit) capsule 125 mcg PO DAILY phytonadione (vitamin K1) 100 mcg tablet 100 mcg PO DAILY azelastine 137 mcg (0.1 %) spray,non-aerosol 2 spray INTRANASAL BID Qty: 90 3RF Rx Instructions: administer into each nostril atorvastatin 40 mg tablet 40 mg PO DAILY Qty: 90 3RF loratadine 10 mg tablet 10 mg PO DAILY Qty: 90 3RF meloxicam 15 mg tablet 15 mg PO DAILY Qty: 90 3RF Fiber (psyllium husk-sugar) 3.4 gram/7 gram powder 1 tsp PO BID Qty: 822 0RF aspirin 81 mg Capsule 81 mg PO PRN PRN (Reason: Pain) montelukast [Singulair] 10 mg tablet 10 mg PO BEDTIME Qty: 90 3RF Referrals: Dino Avery MD [Primary Care Provider, Internal Medicine] Stand Alone Forms: Patient Portal/API
[2025-07-26] MEDS: ASPIRIN 81 MG CHEW TAB 324 MG PO (12:31)
--- NOTE | 2025-07-26 12:36 | DI.RAD.S_ITS ---
PROCEDURE: XR CHEST 1V
--- NOTE | 2025-07-26 12:38 | EKG_ITS ---
[facility]
[2025-07-26 12:52] LABS: Add Manual Diff / Slide Review NO; Hematocrit 44.1 % (36-46); Hemoglobin 15.4 g/dL (12.0-16.0); Lymphocytes Absolute Auto 2400 /uL (1100-4500); Mean Corpuscular HGB Conc 34.8 % (30-36); Mean Corpuscular Hemoglobin 28.9 PG (26-34); Mean Corpuscular Volume 83.0 fL (80-100); Platelet Count 155 X10^3/uL (150-400)
[2025-07-26 13:05] LABS: Alanine Aminotransferase 27 IU/L (<35); Albumin 4.9 g/dL (3.5-5.0); Albumin Globulin Ratio 1.4 (1.0-2.8); Alkaline Phosphatase 80 U/L (38-126); Blood Urea Nitrogen 22 mg/dL (7-17); Calcium 9.5 mg/dL (8.4-10.2); Carbon Dioxide 23 mmol/L (22-32); Chloride 106 mmol/L (98-107); Creatine Kinase 97 U/L (30-135); Estimated Glomerular Filt Rate > 60 mL/min (>60); Globulin 3.6 g/dL (1.7-4.1); Glucose 104 mg/dL (70-99); HEMOLYSIS 16 (0-50); Potassium 4.2 mmol/L (3.4-5.1); Sodium 139 mmol/L (137-145); Total Protein 8.5 g/dL (6.3-8.2)
[2025-07-26] MEDS: ALBUTEROL/IPRATROPIUM 3 ML AMPUL INH (13:09)
--- NOTE | 2025-07-26 13:09 | DI.CT.S_ITS ---
PROCEDURE: CT ANGIO CHEST PE PROTOCOL
[2025-07-26 13:13] VITALS: PULSE 89; RESP 18; O2SAT 99
[2025-07-26 13:17] LABS: Troponin I < 0.012 ng/mL (0.01-0.034)
[2025-07-26 15:03] VITALS: BP 119/68; PULSE 78; RESP 16; O2SAT 97
[2025-07-26] MEDS: APIXABAN 5 MG TABLET 10 MG PO (15:42)
== END 2025-07-26 16:00 | disposition home or self-care (01) ==
PROVIDERS: Emergency Provider Physician Assistant; PCP Internal Medicine
DX: I26.93 Single subsegmental thrombotic pulmonary embolism without acute cor pulmonale (principal); M79.605 Pain in left leg; R07.9 Chest pain, unspecified
CPT/HCPCS: 71045; 71275; 80053; 82550; 84484; 85025; 85379; 93005; 93971; 94640; 99283; 99284; Q9967

== ENCOUNTER → 2025-07-30 11:13 | Outpatient (CLI) | payer OTHER, SELFPAY ==
--- NOTE | 2025-07-30 11:13 | DI.CT.S_ITS ---
PROCEDURE: CT CHEST WO CON
== END ==
LOC: CT 11:13
PROVIDERS: PCP Internal Medicine; Referring Provider Internal Medicine; Visit Provider Internal Medicine
DX: R91.8 Other nonspecific abnormal finding of lung field (principal)
CPT/HCPCS: 71250

== ENCOUNTER → 2025-08-22 11:15 | Outpatient (CLI) | payer OTHER, SELFPAY ==
--- NOTE | 2025-08-22 11:17 | DI.RAD.S_ITS ---
PROCEDURE: XR LUMBAR SPINE MIN 4V INDICATIONS: eval possible lumbosacral radiculopathy TECHNIQUE: 5 views of the lumbar spine were acquired, including bilateral oblique views. COMPARISON: None. FINDINGS: Bones: Five nonrib-bearing vertebrae are present. Trace retrolisthesis L1-2, L2-3, L3-4. Trace anterolisthesis L5-S1. Mild to moderate endplate spurring from L1 through L4. Mild facet arthropathy and sclerosis throughout the lumbar spine. No vertebral body compression fractures. No suspicious bony lesions. Mild multilevel disc height loss. Soft tissues: Overlying bowel gas pattern is normal. No suspicious soft tissue calcifications. Oblique images: No pars defects. IMPRESSION: Multilevel spondylosis and trace spondylolisthesis. Dictated by: Lissa Mix M.D. on 08/22/2025 at 14:30 Approved by: Lissa Mix M.D. on 08/22/2025 at 14:32
== END ==
PROVIDERS: PCP Registered Nurse Diabetes Educator; Referring Provider Registered Nurse Diabetes Educator; Visit Provider Registered Nurse Diabetes Educator
DX: M47.27 Other spondylosis with radiculopathy, lumbosacral region (principal); M47.26 Other spondylosis with radiculopathy, lumbar region
CPT/HCPCS: 72110

== ENCOUNTER → 2025-08-22 14:39 | Outpatient (CLI) | payer OTHER, SELFPAY ==
--- NOTE | 2025-08-22 14:40 | DI.MG.S_ITS ---
MM screening mammo BI: 08/22/2025. BI-RADS: 1 CLINICAL: 49-year old female for bilateral screening mammogram. Tyrer-Cuzick lifetime risk of 8.8%. No personal or first-degree family history of breast cancer. PRIOR EXAMS 07/12/2024, 02/26/2023, 05/20/2021. MAMMOGRAPHY TECHNIQUE: 2D and 3D (tomosynthesis) digital mammographic views obtained, with additional images as needed for full coverage. Current study was also evaluated with a Computer Aided Detection (CAD) system. DENSITY C. The breasts are heterogeneously dense, which may obscure small masses. MAMMOGRAPHY FINDINGS Bilateral: No suspicious mass, asymmetry, microcalcification, or other abnormality seen. IMPRESSION: * No evidence of malignancy. RECOMMENDATIONS Bilateral * Annual screening mammography. OVERALL ASSESSMENT CATEGORY BI-RADS-1: Negative. The [employer] recommends annual screening mammography beginning at age 40 for women with average risk of breast cancer. ELECTRONICALLY SIGNED: Dennys Jalloh M.D. on 08/23/2025 at 12:31:18 PM PT Interpreting Station ID: [id number]
== END ==
LOC: MAMMO 14:39
PROVIDERS: PCP Registered Nurse Diabetes Educator; Referring Provider Registered Nurse Diabetes Educator; Visit Provider Internal Medicine
DX: Z12.31 Encounter for screening mammogram for malignant neoplasm of breast (principal); R92.333 Mammographic heterogeneous density, bilateral breasts
CPT/HCPCS: 77063; 77067